=== PATIENT | female | born 1995 | race Caucasian/White ===

== ENCOUNTER 2021-01-06 13:12 | Emergency (ER) | payer OTHER, SELFPAY ==
[2021-01-06 13:24] VITALS: BP 127/73; PULSE 108; RESP 18; TEMP 36.7; O2SAT 100
--- NOTE | 2021-01-06 14:06 | ED.GENADULT ---
HPI - General Adult General Chief complaint: Wound/Laceration Stated complaint: abcess Time Seen by Provider: 01/06/21 13:14 Source: patient and RN notes reviewed Mode of arrival: ambulatory Limitations: no limitations History of Present Illness HPI narrative: Patient is a 25-year-old female who presents to emergency department for evaluation of wound to the groin adjacent to the labia patient has had this for several days was seen at an outside hospital had I&D no packing placed on Keflex presents today noting that the lesion has increased in size after work today patient denies any fever chills nausea vomiting patient notes she has had a similar lesion in the past does not currently have an [employer] patient denies concern for STDs or vaginal discharge or bleeding patient does note some mild urinary urgency and frequency would like to also be tested for urinary tract infection on arrival patient in no distress does not appear uncomfortable Related Data Home Medications Medication Instructions Recorded Confirmed valacyclovir [Valtrex] 500 mg PO Q12H 01/06/21 01/06/21 Allergies Allergy/AdvReac Type Severity Reaction Status Date / Time cashew nut Allergy Unknown Verified 01/06/21 13:31 Review of Systems Review of Systems: All systems reviewed & are unremarkable except as noted in HPI and below PMFSH Social History Social History Gender identity (if verbalized by the patient): Female Exam Narrative: Exam Narrative: GENERAL: Well-appearing, well-nourished, and in no acute distress. HEAD: Normocephalic, atraumatic. EYES: PERRLA and EOMI. EXTREMITIES: Normal range of motion. No edema. SKIN: Warm, dry, no rash. Patient with 1 cm x 2 cm tender swollen lesion with approximated central half centimeter incision that is approximated there is no erythema NEURO: No focal deficits. Alert and oriented x3. Cranial nerves II through XII grossly intact PSYCH: Normal mood and affect. Course Course Emergency Course: Patient presented with abscess to the right groin which was drained yesterday noting that it had increased in size again today wanted a second opinion on the lesion Vital Signs Vital signs: Vital Signs Temperature 98.1 F 01/06/21 13:24 Pulse Rate 108 H 01/06/21 13:24 Respiratory Rate 18 01/06/21 13:24 Blood Pressure 127/73 01/06/21 13:24 Pulse Oximetry 100 01/06/21 13:24 Temperature 98.1 F 01/06/21 13:24 Pulse Rate 108 H 01/06/21 13:24 Respiratory Rate 18 01/06/21 13:24 Blood Pressure 127/73 01/06/21 13:24 Pulse Oximetry 100 01/06/21 13:24 Procedures Abscess I/D skin: Date of Incision: 01/06/21 Time of Incision: 15:11 Side (if applicable): right Local Anesthetic: lidocaine 1% Technique: incised with #11 blade Packing used?: iodoform I&D Results: Pus and Blood Complications: pain Medical Decision Making MDM Narrative Medical decision making narrative: Abscess of the groin drained and packed will follow with gynecology given reasons to return Vital Signs Vital Signs: Vital Signs Temperature 98.1 F 01/06/21 13:24 Pulse Rate 108 H 01/06/21 13:24 Respiratory Rate 18 01/06/21 13:24 Blood Pressure 127/73 01/06/21 13:24 Pulse Oximetry 100 01/06/21 13:24 Temperature 98.1 F 01/06/21 13:24 Pulse Rate 108 H 01/06/21 13:24 Respiratory Rate 18 01/06/21 13:24 Blood Pressure 127/73 01/06/21 13:24 Pulse Oximetry 100 01/06/21 13:24 Lab Data Labs: Lab Results 01/06/21 Range/Units 14:20 Urine Color Yellow (Yellow) Urine Appearance Cloudy H (Clear) Urine pH 5.0 (5.0-9.0) Ur Specific [place] 1.024 (1.001-1.035) Urine Protein 1+ H (Negative) mg/dL Urine Glucose (UA) Negative (Negative) mg/dL Urine Ketones Negative (Negative) mg/dL Ur Blood (Man) Negative (Negative) Urine Nitrate Negative (Negative) Urine Gelacio
[2021-01-06 14:32] LABS: Add Urine Microscopic? YES; Appearance Urine Cloudy (Clear); Bacteria Urine Trace /hpf; Bilirubin Urine Negative (Negative); Blood Urine Negative (Negative); Color Urine Yellow (Yellow); Glucose Urine UA Negative (Negative); Ketones Urine Negative (Negative); Leukocyte Esterase Ur Negative LEU/UL (Negative); Mucus Urine Few /lpf; Nitrate Urine Negative (Negative); Protein Urine 1+ mg/dL (Negative); RBC Urine 0-2 /hpf (0-2); Specific Grav Ur 1.024 (1.001-1.035); Squamous Epithelial Cell Urine Many /hpf (Few); WBC Urine 0-3 /hpf
== END 2021-01-06 15:46 | disposition home or self-care (01) ==
PROVIDERS: Emergency Medicine Emergency Medical Services; Emergency Provider Emergency Medicine
DX: L02.214 Cutaneous abscess of groin (principal)
CPT/HCPCS: 10061; 81001; 81025; 87070; 87075; 87076; 87185; 87205; 99282

== ENCOUNTER 2021-03-01 14:39 | Emergency (ER) | payer OTHER, SELFPAY ==
[2021-03-01 15:09] VITALS: BP 103/59; PULSE 56; RESP 16; TEMP 36.8; O2SAT 100
--- NOTE | 2021-03-01 16:04 | ED.SKABFB ---
HPI - Skin/Abscess/Foreign Bdy General Chief complaint: Skin/Abscess/Foreign Body Stated complaint: Abcess Inner Thigh Time Seen by Provider: 03/01/21 15:30 Source: patient Mode of arrival: ambulatory Limitations: no limitations History of Present Illness HPI narrative: This is a 25-year-old female that presents to the emergency department for an area of redness and swelling to the right inner thigh. She has has noted pain in this area since yesterday. Does also report some dysuria. Denies fever, abdominal pain, vomiting, or drainage from the area. Related Data Home Medications Medication Instructions Recorded Confirmed acyclovir 03/01/21 Allergies Allergy/AdvReac Type Severity Reaction Status Date / Time cashew nut Allergy Unknown Verified 03/01/21 16:50 Review of Systems Review of Systems: Narrative: CONSTITUTIONAL: Denies fever GASTROINTESTINAL: Denies abdominal pain, nausea, vomiting GENITOURINARY: Reports dysuria All systems reviewed & are unremarkable except as noted in HPI and below PMFSH Past Medical History Medical History (Updated 03/01/21 @ 17:26 by Marianela Chan PA-C) History of herpes simplex infection Social History Social History (Updated 03/01/21 @ 16:05 by Marianela Chan PA-C) Substance use: never Gender identity (if verbalized by the patient): Female Exam Narrative: Exam Narrative: GENERAL: Well-appearing, well-nourished, and in no acute distress. HEAD: Normocephalic, atraumatic. EYES: EOMI. EXTREMITIES: Normal range of motion. No edema. SKIN: Warm, dry, no rash. NEURO: No focal deficits. Alert and oriented x3. PSYCH: Normal mood and affect FEMALE GENITAL: Right inner thigh with 2cm area of erythema and edema with central fluctuance. No other rashes or lesions noted Course Vital Signs Vital signs: Vital Signs Temperature 98.2 F 03/01/21 15:09 Pulse Rate 56 L 03/01/21 15:09 Respiratory Rate 16 03/01/21 15:09 Blood Pressure 103/59 L 03/01/21 15:09 Pulse Oximetry 100 03/01/21 15:09 Temperature 97.5 F L 03/01/21 16:43 Pulse Rate 55 L 03/01/21 16:43 Respiratory Rate 18 03/01/21 16:43 Blood Pressure 103/64 03/01/21 16:43 Pulse Oximetry 100 03/01/21 16:43 Procedures Abscess I/D lower extremity: Date of Incision: 03/01/21 Time of Incision: 17:23 Side (if applicable): right Local Anesthetic: lidocaine 1% and with epi Amount of anesthesia used (mL): 2 Technique: incised with #11 blade Packing used?: plain I&D Results: Pus and Blood MDM - Skin/Abscess/Foreign Bdy MDM Narrative Medical decision making narrative: Patient presents to the emergency department for an abscess to the right inner thigh present since yesterday. She is afebrile and nontoxic-appearing. Abscess was successfully drained. Patient was educated on wound care. She was also reporting some dysuria. Very small amount of urine removed. UA without evidence of infection. Bedside test is negative. Patient will be started on oral antibiotics after abscess drainage for mild surrounding cellulitis. She is to follow-up with her primary care doctor. She was given warnings to return to the ER Patient takes valacyclovir for suppressive therapy of genital herpes. Would like refill of this until she can see her primary doctor Lab Data Attestation: I reviewed the patient's lab results. Labs: Lab Results 03/01/21 Range/Units 16:25 Urine Color Yellow (Yellow) Urine Appearance Clear (Clear) Urine pH 5.0 (5.0-9.0) Ur Specific [place] 1.025 (1.001-1.035) Urine Protein 2+ H (Negative) mg/dL Urine Glucose (UA) Negative (Negative) mg/dL Urine Ketones Negative (Negative) mg/dL Ur Blood (Man) Negative (Negative) Urine Nitrate Negative (Negative) Urine Bilirubin Negative (Negative) Urine Urobilinogen 2.0 H (<2.0) mg/dL Leukocyte Esterase Rfl Negative (Negative) LON/UL Urin
[2021-03-01 16:43] VITALS: BP 103/64; PULSE 55; RESP 18; TEMP 36.4; O2SAT 100
[2021-03-01 16:46] LABS: Add Urine Microscopic? YES; Appearance Urine Clear (Clear); Bacteria Urine Trace /hpf; Bilirubin Urine Negative (Negative); Blood Urine Negative (Negative); Color Urine Yellow (Yellow); Glucose Urine UA Negative (Negative); Ketones Urine Negative (Negative); Leukocyte Esterase Ur Negative LEU/UL (Negative); Mucus Urine Few /lpf; Nitrate Urine Negative (Negative); Protein Urine 2+ mg/dL (Negative); RBC Urine 0-2 /hpf (0-2); Specific Grav Ur 1.025 (1.001-1.035); Squamous Epithelial Cell Urine Many /hpf (Few); WBC Urine 0-3 /hpf
[2021-03-01 18:28] VITALS: BP 105/58; PULSE 58; RESP 16; TEMP 36.7; O2SAT 100
== END 2021-03-01 18:28 | disposition home or self-care (01) ==
PROVIDERS: Physician Assistant; Emergency Provider Emergency Medicine
DX: L02.415 Cutaneous abscess of right lower limb (principal); A60.00 Herpesviral infection of urogenital system, unspecified
CPT/HCPCS: 10060; 81001; 81025; 99283

== ENCOUNTER 2021-04-24 22:00 | Emergency (ER) | payer OTHER, SELFPAY ==
[2021-04-24 22:14] VITALS: BP 117/75; PULSE 92; RESP 16; TEMP 36.7; O2SAT 100
[2021-04-24 23:30] VITALS: BP 126/96; PULSE 72; RESP 16; O2SAT 100
[2021-04-24 23:56] LABS: Add Urine Microscopic? YES; Appearance Urine Clear (Clear); Bacteria Urine Trace /hpf; Bilirubin Urine 1+ (Negative); Blood Urine Negative (Negative); Calcium Oxalate Crystals Urine Present /hpf; Color Urine Amber (Yellow); Glucose Urine UA Negative (Negative); Ketones Urine Trace mg/dL (Negative); Leukocyte Esterase Ur Negative LEU/UL (Negative); Mucus Urine Heavy /lpf; Nitrate Urine Negative (Negative); Protein Urine 2+ mg/dL (Negative); RBC Urine 0-2 /hpf (0-2); Squamous Epithelial Cell Urine Many /hpf (Few); WBC Urine 0-3 /hpf
[2021-04-24 23:59] LABS: Specific Grav Ur 1.031 (1.001-1.035)
--- NOTE | 2021-04-25 00:04 | ED.BACK ---
HPI - Back Pain/Injury General Chief Complaint: Back Pain/Injury Stated Complaint: back pain Time Seen by Provider: 04/24/21 23:25 Source: patient and RN notes reviewed Mode of arrival: ambulatory Limitations: no limitations History of Present Illness HPI Narrative: This is a 25 year old female who presents for evaluation of lower back pain. She states she woke up with low back pain this afternoon around 3 pm. She reports her pain became worse while she was at work tonight when she was reaching for something. Her pain is worse with movement and bending. She has not taken anything for her pain. She describes it as band around back and abdomen. She states her pain makes her bilateral thighs feel like they are numbness. She denies leg weakness, saddle anesthesia. She does reports some painful urination and vaginal discharge. She denies nausea, vomiting , fever or chills. She reports previous back pain. Related Data Home Medications Medication Instructions Recorded Confirmed acyclovir 03/01/21 Allergies Allergy/AdvReac Type Severity Reaction Status Date / Time cashew nut Allergy Unknown Verified 04/24/21 22:19 Review of Systems Review of Systems: All systems reviewed & are unremarkable except as noted in HPI and below PMFSH Past Medical History Medical History History of herpes simplex infection Social History Social History (Updated 03/01/21 @ 16:05 by Marianela Chan PA-C) Substance use: never Gender identity (if verbalized by the patient): Female Exam Const: General: alert Nutritional Appearance: thin Orientation/consciousness: patient oriented x3 Eyes: EOM: EOMs intact bilaterally Resp: Effort & Inspection: normal respiratory effort and no retractions Auscultation: clear to auscultation bilaterally Cardio: Rate: regular rate Rhythm: regular rhythm Heart sounds: no murmurs GI: GI Palp: Yes Soft to palpation, No Tenderness to palpation present (GI) and No Guarding due to palpation present (GI) Auscultation: normal bowel sounds : General: Yes no CVA tenderness Back/Spine/Pelvis: Back: no CVA tenderness Skin: General skin exam: normal color Rashes: no rashes Neuro: General: patient oriented x3, moves all extremities, no focal motor deficits and CN's II-XI intact bilaterally Speech: normal speech Gait exam (Neuro): Normal gait present Extrem: General: normal to inspection Psych: Mental Status: mental status grossly normal Affect: normal affect Course Reevaluation(s) Reevaluation #1: Patient states she feels better. This appears to be muscular. She has not abdominal tenderness and pelvic exam is unremarkable. Date: 04/25/21 Time: 01:30 Vital Signs Vital signs: Vital Signs Temperature 98.1 F 04/24/21 22:14 Pulse Rate 92 04/24/21 22:14 Respiratory Rate 16 04/24/21 22:14 Blood Pressure 117/75 04/24/21 22:14 Pulse Oximetry 100 04/24/21 22:14 Temperature 98.1 F 04/24/21 22:14 Pulse Rate 80 04/25/21 01:20 Respiratory Rate 18 04/25/21 01:20 Blood Pressure 113/77 04/25/21 01:20 Pulse Oximetry 100 04/25/21 01:20 MDM - Back Pain/Injury Lab Data Attestation: I reviewed the patient's lab results. Labs: Lab Results 04/24/21 04/25/21 04/25/21 Range/Units 23:44 01:05 01:05 Urine Color Lisa (Yellow) Urine Appearance Clear (Clear) Urine pH 5.0 (5.0-9.0) Ur Specific [place] 1.031 (1.001-1.035) Urine Protein 2+ H (Negative) mg/dL Urine Glucose (UA) Negative (Negative) mg/dL Urine Ketones Trace (Negative) mg/dL Ur Blood (Man) Negative (Negative) Urine Nitrate Negative (Negative) Urine Bilirubin 1+ H (Negative) Urine Urobilinogen 4.0 H (<2.0) mg/dL Leukocyte Esterase Rfl Negative (Negative) LON/UL Urine RBC 0-2 (0-2) /hpf Urine WBC 0-3 /hpf Ur Squamous Epith Cells Many H (Few) /hpf Calcium Ox
[2021-04-25] MEDS: CYCLOBENZAPRINE HCL 5 MG TABLET PO (00:16)
[2021-04-25] MEDS: IBUPROFEN 600 MG TABLET PO (00:16)
[2021-04-25 01:20] VITALS: BP 113/77; PULSE 80; RESP 18; O2SAT 100
== END 2021-04-25 01:50 | disposition home or self-care (01) ==
PROVIDERS: Emergency Provider General Practice
DX: M54.5 Low back pain (principal)
CPT/HCPCS: 81001; 81025; 87070; 87491; 87591; 87808; 99284; A9270

== ENCOUNTER 2022-03-04 15:05 | Outpatient (CLI) | payer OTHER, SELFPAY ==
--- NOTE | ~2022-03-04 | US_ITS ---
US OB /maternal detail DATE: 03/04/2022 16:58 INDICATION: anatomy screen TECHNIQUE: Real-time imaging and Doppler analysis COMPARISON: None FINDINGS: Live matthews intrauterine gestation, fetus in breech presentation, longitudinal lie. Posterior placenta, lower margin 5.6 cm above the internal os. Subjectively normal amount of amniotic fluid. No evidence of cerebral ventriculomegaly. Normal cerebellum, cisterna magna and nuchal fo ld. Due to position, the technologist notes that the spine and heart not a optimally demo nstrated. heart rate 155 bpm. diaphragm is intact. Fluid is demonstrated in the stomach and urinary bladder. No f etal hydronephrosis. Three-vessel umbilical cord with normal insertion. The extremities are demonstra sedrick. Biparietal diameter 4.61 cm; 20 weeks 0 days Head circumference 16.49 cm; 19 weeks 1 day Abdominal circumference 15.70 cm; 20 weeks 6 days Femur length 3.31 cm; 20 weeks 2 days Composite age by Hadlock formula is 20 weeks 1 day +/- 1 week 3 days with LUCRECIA of 07/21/2022 compared to 07/20/2022 by LMP. Estimated weight is 355 cm 53 g. Estimated weight-GP: 55% Head circumference/abdominal circumference 1.05, slightly below normal range 1.07-125. IMPRESSION: Breech presentation Suboptimal visualization of the spine and heart; short-term follow-up imaging is recommended. Estimated gestational age is 20 weeks 1 day +/- 1 week 3 days with LUCRECIA of 07/21/2022 Reviewed, dictated and finalized at [facility]. Reviewed, dictated and finalized at [facility]. IMPRESSION: Breech presentation Suboptimal visualization of the spine and heart; short-term follow-up gerard ging is recommended. Estimated gestational age is 20 weeks 1 day +/- 1 week 3 days with LUCRECIA of 07/21
== END 2022-03-04 15:06 | disposition home or self-care (01) ==
PROVIDERS: PCP Emergency Medicine; Visit Provider Advanced Practice Midwife
DX: Z34.92 Encounter for supervision of normal pregnancy, unspecified, second trimester (principal); Z3A.20 20 weeks gestation of pregnancy
CPT/HCPCS: 76805

== ENCOUNTER 2022-03-26 13:59 | Outpatient (CLI) | payer OTHER, SELFPAY ==
--- NOTE | ~2022-03-26 | US_ITS ---
US OB limited 03/26/2022 15:02 Indication: Incomplete survey on prior examination Procedure: High-resolution Limited obstetrical ultrasound using transabdominal technique Comparison: Ultrasound dated 03/04/2022 Findings: There is a single living intrauterine in vertex presentation. Placenta is posteri or without previa. Amniotic fluid is subjectively normal. Limited survey demonstrates normal spine an d four-chamber heart. The remainder of the survey was completed on prior examination. Impression: 1: Single living intrauterine in vertex presentation. 2: Normal limited survey of the spine and four-chamber heart. Reviewed, dictated and finalized at location [facility]. Impression: 1: Single living intrauterine in vertex presentation. 2: Normal limited survey of the spine and four-chamber heart.
== END 2022-03-26 14:00 | disposition home or self-care (01) ==
PROVIDERS: PCP Emergency Medicine; Visit Provider Obstetrics & Gynecology Gynecology
DX: Z36.2 Encounter for other antenatal screening follow-up (principal)
CPT/HCPCS: 76815

== ENCOUNTER 2022-05-12 16:51 | Outpatient (CLI) | payer OTHER, SELFPAY ==
--- NOTE | ~2022-05-12 | US_ITS ---
EXAMINATION: US OB follow up DATE: 05/12/2022 17:28 INDICATION: Size less than dates. TECHNIQUE: Real-time ultrasound of the pelvis was performed. COMPARISON: Ultrasound 03/26/2022, 03/04/2022 FINDINGS: There is a single living fetus in vertex presentation. The placenta is posterior and fundal. h eart rate is 138 beats per minute (bpm). The amniotic fluid index is 14.2 cm, which is normal. The following biometric data were obtained: Biparietal diameter (BPD): 7.5 cm; head circumference (HC): 27.7 cm; abdominal circumference (AC): 25 .4 cm; femur length (FL): 5.7 cm. These measurements are concordant. Estimated weight is 1442 g +/- 216 g, which correlates with the 42nd percentile when 07/24/2022 is used as estimated date of delivery. As single measurements, these parameters are each equal to the following estimated gestational ages: BPD: 29 weeks 6 days. HC: 30 weeks 2 days. AC: 29 weeks 4 days. FL: 29 weeks 5 days. estimated gestational age based solely on measurements from this exam is 29 weeks 6 days +/- 2 weeks 1 days. IMPRESSION: 1. Single living fetus in vertex presentation. 2. Estimated weight is 1442 g +/- 216 g, which correlates with the 42nd percentile when 2021 is used as estimated date of delivery. Reviewed, dictated and finalized at location [facility]. IMPRESSION: 1. Single living fetus in vertex presentation. 2. Estimated weight is 1442 g +/- 216 g, which correlates with the 42nd percentile when 07/24/2022 is used as estimated date of delivery.
== END 2022-05-12 16:52 | disposition home or self-care (01) ==
LOC: ANHIMG 16:56
PROVIDERS: PCP Emergency Medicine; Visit Provider Advanced Practice Midwife
DX: O26.843 Uterine size-date discrepancy, third trimester (principal); Z3A.29 29 weeks gestation of pregnancy
CPT/HCPCS: 76816

== ENCOUNTER 2022-06-08 14:26 | Observation (INO) | payer OTHER, SELFPAY ==
[2022-06-08 14:40] VITALS: BMI 25.5
[2022-06-08 14:46] VITALS: BP 110/62; PULSE 89
--- NOTE | 2022-06-08 14:46 | OBADM ---
This patient, Teresa Toribio, admitted to the OB room OB Post 115 for observation. Patient/family oriented to hospital policies and general routines including ID bracelet, bed and alarms, visiting hours, pain management, procedures, bathroom and other care routines, personal items, smoking policy, room service/diet, and visiting hours. Patient/Family are encouraged to report perceived risks to care and to ask questions if they do not understand what they are told or what they should do.
[2022-06-08 15:01] VITALS: BP 104/63; PULSE 90
[2022-06-08 15:04] LABS: Appearance Urine Slightly Cloudy (Clear); Bilirubin Urine Negative (Negative); Blood Urine Trace-intact (Negative); Color Urine Yellow (Yellow); Glucose Urine UA Negative (Negative); Ketones Urine Negative (Negative); Leukocyte Esterase Ur 3+ LEU/UL (Negative); Nitrate Urine Negative (Negative); Protein Urine Negative (Negative)
[2022-06-08 15:16] VITALS: BP 106/72; PULSE 86
[2022-06-08] MEDS: ONDANSETRON HCL ODT 4 MG TABLET PO (15:23)
[2022-06-08 15:29] LABS: Amorphous Sediment Urine Few; Bacteria Urine Trace /hpf; Mucus Urine Rare /lpf; Squamous Epithelial Cell Urine Many /hpf (Few)
[2022-06-08 15:31] VITALS: BP 103/62; PULSE 102
[2022-06-08 15:31] LABS: Add Urine Microscopic? YES
[2022-06-08 15:46] VITALS: BP 106/58; PULSE 81
--- NOTE | 2022-06-08 16:20 | PC.NURSE ---
[address] Sierra, reviewed UA results, orders to give 4 mg PO Zofran once. If symptoms resolved pt may be discharged to home w/ zofran prescription.
--- NOTE | 2022-06-13 04:44 | P.PNOB_ITS ---
OB - Triage/Final Diagnosis Visit Information Date of evaluation: 06/08/22 Reason for evaluation: other (nausea/vomiting with swelling) Comments/Additional reasons for admission: I have assessed the risk for this patient, Teresa Toribio, and determined that she would benefit from observation care. Evaluation Laboratory results: Laboratory Tests 06/08/22 14:53 Urine Color Yellow Urine Appearance Slightly cloudy Urine pH 7.0 Ur Specific [place] 1.020 Urine Protein Negative Urine Glucose (UA) Negative Urine Ketones Negative Ur Blood (Man) Trace-intact Urine Nitrate Negative Urine Bilirubin Negative Urine Urobilinogen 1.0 Leukocyte Esterase Rfl 3+ H Urine RBC 6-10 H Urine WBC 7-9 H Ur Squamous Epith Cells Many H Amorphous Sediment Few H Urine Bacteria Trace Urine Mucus Rare
== END 2022-06-08 16:20 | disposition home or self-care (01) ==
PROVIDERS: Admitting Provider Obstetrics & Gynecology Gynecology; PCP Emergency Medicine; Visit Provider Obstetrics & Gynecology Gynecology
DX: O99.891 Other specified diseases and conditions complicating pregnancy (principal); M54.9 Dorsalgia, unspecified; O21.2 Late vomiting of pregnancy; Z3A.33 33 weeks gestation of pregnancy
CPT/HCPCS: 81001; 87086; 87088; A9270; G0378; G0379

== ENCOUNTER 2022-06-09 16:26 | Outpatient (CLI) | payer OTHER, SELFPAY ==
--- NOTE | ~2022-06-09 | US_ITS ---
EXAMINATION: US OB follow up DATE: 06/09/2022 17:21 INDICATION: Size greater than dates. TECHNIQUE: Real-time transabdominal obstetric ultrasound. FINDINGS: Comparison to multiple prior studies sequentially, with oldest reviewed study dated 022. There is a single living fetus in vertex presentation. The placenta is posterior/fundal without plac enta previa. cardiac activity and movement is noted with a heart rate of 138 beats per minute. T he amniotic fluid volume is normal. KAYLYNN measures 13.5 cm. The following biometric data were obtained: BPD: 83mm corresponds to gestational age 33 weeks 3 days. Head circumference: 295mm corresponds to gestational age 32 weeks 4 days. Abdominal circumference: 285mm corresponds to gestational age 32 weeks 4 days. Femur length: 66mm corresponds to gestational age 34 weeks 0 days. Estimated weight: 2108grams +/- 316grams, 27.1% by Hadlock method.] IMPRESSION: 1. Single living intrauterine in vertex presentation with an estimated gestational age of 33 weeks 0 days by inititial ultrasound. Appropriate interval growth. 2. Normal placenta. Reviewed, dictated and finalized at location [facility]. IMPRESSION: 1. Single living intrauterine in vertex presentation with an estimat ed gestational age of 33 weeks 0 days by inititial ultrasound. Appropriate int erval growth. 2. Normal placenta.
== END 2022-06-09 16:27 | disposition home or self-care (01) ==
LOC: ANHIMG 16:29
PROVIDERS: PCP Emergency Medicine; Visit Provider Advanced Practice Midwife
DX: O36.5930 Maternal care for other known or suspected poor fetal growth, third trimester, not applicable or unspecified (principal); Z3A.33 33 weeks gestation of pregnancy
CPT/HCPCS: 76816

== ENCOUNTER 2022-06-27 16:39 | Observation (INO) | payer OTHER, SELFPAY ==
[2022-06-27 17:05] VITALS: BP 118/72; PULSE 110
[2022-06-27 17:12] VITALS: BMI 26.2
--- NOTE | 2022-06-27 18:07 | PC.NURSE ---
Spoke to Dr Baker regarding tracing and symptoms. Okay to discharge.
[2022-06-27 18:08] VITALS: BP 118/72; PULSE 86
--- NOTE | 2022-07-06 10:58 | PM.OBTRLD ---
OB - Triage/Final Diagnosis Visit Information Reason for evaluation: other ( abdominal pain) Comments/Additional reasons for admission: I have assessed the risk for this patient, Teresa Toribio, and determined that she would benefit from observation care.
== END 2022-06-27 18:16 | disposition home or self-care (01) ==
PROVIDERS: Admitting Provider Student in an Organized Health Care Education/Training Program; PCP Emergency Medicine; Referring Provider Advanced Practice Midwife; Visit Provider Student in an Organized Health Care Education/Training Program
DX: O26.893 Other specified pregnancy related conditions, third trimester (principal); R10.9 Unspecified abdominal pain; Z3A.36 36 weeks gestation of pregnancy
CPT/HCPCS: 59025; G0378; G0379

== ENCOUNTER 2022-07-15 12:56 | Outpatient (CLI) | payer OTHER, SELFPAY ==
--- NOTE | ~2022-07-15 | US_ITS ---
EXAMINATION: US OB follow up DATE: 07/15/2022 14:40 INDICATION: Size less than dates during third trimester TECHNIQUE: Real-time ultrasound of the pelvis was performed. The interpreting radiologist was not pre sent for the study. COMPARISON: 06/09/2022 FINDINGS: There is a single living fetus in vertex presentation. The placenta is fundal. cardia c activity and movement are noted. heart rate is 157 beats per minute (bpm). The amniotic fluid index is 18.3 cm which is normal (normal range: 7.3 cm to 23.9 cm). The following biometric data were obtained: Biparietal diameter (BPD): 8.8 cm; head circumference (HC): 32.2 cm; abdominal circumference (AC): 32 .8 cm; femur length (FL): 7.4 cm. These measurements are concordant. Estimated weight is 3032 g +/- 454 g, which correlates with the 21st percentile when 07/24/2022 is used as estimated date of delivery. As single measurements, these parameters are each equal to the following estimated gestational ages w ith ranges of +/- 2 standard deviations: BPD: 35 weeks 4 days +/- 3 weeks 1 days. HC: 36 weeks 3 days +/- 2 weeks 5 days. AC: 26 weeks 5 days +/- 3 weeks 0 days. FL: 37 weeks 4 days +/- 3 weeks 1 days. estimated gestational age based solely on measurements from this exam is 36 weeks 4 days +/- 2 weeks 4 days. IMPRESSION: 1. Single living fetus in vertex presentation. 2. Normal amniotic fluid index. 3. Estimated weight is 3032 g +/- 454 g, which correlates with the 21st percentile when 022 is used as estimated date of delivery. Reviewed, dictated and finalized at location [facility]. [employer] IMPRESSION: 1. Single living fetus in vertex presentation. 2. Normal amniotic fluid index. 3. Estimated weight is 3032 g +/- 454 g, which correlates with the 21st p ercentile when 07/24/2022 is used as estimated date of delivery.
== END 2022-07-15 12:57 | disposition home or self-care (01) ==
PROVIDERS: PCP Emergency Medicine; Visit Provider Obstetrics & Gynecology Gynecology
DX: O36.5930 Maternal care for other known or suspected poor fetal growth, third trimester, not applicable or unspecified (principal); Z3A.36 36 weeks gestation of pregnancy
CPT/HCPCS: 76816

== ENCOUNTER 2022-07-21 11:08 | Inpatient (IN) | payer OTHER, SELFPAY ==
[2022-07-21] VITALS (132 sets, daily range): BP systolic 50–129; BP diastolic 38–84; PULSE 63–167; RESP 16; TEMP 36.6–36.7; O2SAT 96–100; BMI 27.6
--- NOTE | ~2022-07-21 | US_ITS ---
EXAMINATION: US OB limited w BPP DATE: 07/21/2022 13:13 INDICATION: Variable decelerations. Third trimester. TECHNIQUE: Real-time pelvic ultrasound was performed. COMPARISON: Ultrasound 07/15/2022 FINDINGS: There is a single living fetus in vertex presentation. The placenta is fundal. heart rate is 1 35 beats per minute (bpm). The amniotic fluid index is 14.0 cm, which is normal. Biophysical profile performed by the technologist: breathing (30 sec sustained breathing in 30 minutes): 2 out of 2 movement (3 gross body movements in 30 minutes): 2 out of 2 tone (one episode of dubqsos-jkxecnnek-qgkdtqu limb movement): 2 out of 2 Amniotic fluid pocket (2 cm): 2 out of 2 Total score: 8 out of 8 IMPRESSION: 1. Single living fetus in vertex presentation. 2. Biophysical profile 8 out of 8. Reviewed, dictated and finalized at location A. ER ROOM HELPER
--- NOTE | 2022-07-21 11:08 | LDADM ---
This patient, Teresa Toribio, was admitted to Labor/Delivery/Recovery 102 on 07/21/22 at 11:08. Plans for labor, pain management and were discussed with patient. Patient/family oriented to hospital policies and general routines including ID bracelet, bed and alarms, visiting hours, pain management, procedures, bathroom and other care routines, personal items, smoking policy, room service/diet and guest tray routines, security routines, and visiting hours. Patient/Family are encouraged to report perceived risks to care and to ask questions if they do not understand what they are told or what they should do. See OBIX for further documentation.
--- NOTE | 2022-07-21 15:07 | PM.OBPNLAB ---
Pain Control Date/time seen: 07/21/22 15:07 Comments: Breathing through contractions. Reports increasingly more painful ctx. Pelvic Exam Dilation (cm): 1 (1.5cm) Effacement (%): 80 station: -2 Amniotic membrane status: Intact Comments: vtx Contractions Monitor mode: External Contraction frequency: 3 Contraction duration: 60 Contraction pattern: Regular Contraction phase: Contraction Contraction intensity: Moderate Status status: Category ll Assessment and Plan Comments: Discussed plan of care with Teresa and her support person who is her stepmother. She reports increasingly painful contractions. Due to this and heart tone deceleration will admit to Labor and delivery and plan for delivery. Anticipate vaginal . Patient desires epidural for pain control. After epidural placement will consider amniotomy. Discussed plan of care with patient and questions answered.
--- NOTE | 2022-07-21 15:09 | WPDOBADMIT ---
Obstetrics - Admit Note Admission Note: record reviewed. No pertinent additions to the history and/or any subsequent changes in the physical findings that are not consistent with the expected course of the were found. Additions to the history and/or subsequent changes in the physical findings follow. intermittent FHT decelerations.
[2022-07-21 15:55] LABS: Basophils Absolute Auto 0.1 K/mm3 (0.0-0.1); Basophils Percent Auto 0.2 % (0.2-1.2); Eosinophils Percent Auto 0.2 % (0-4.4); Hematocrit 36.5 % (37.0-47.0); Hemoglobin 12.7 g/dL (12.0-15.0); Immature Granulocyte Absolute 0.18 K/mm3 (0.00-0.031); Immature Granulocyte Percent A 0.7 % (0-0.5); Lymphocytes Absolute Auto 3.35 K/mm3 (0.9-3.2); Lymphocytes Percent Auto 13.9 % (18.3-44.2); Mean Corpuscular HGB Conc 34.8 g/dl (32-36); Mean Corpuscular Hemoglobin 32.7 pg (26-34); Mean Corpuscular Volume 94.1 fl (80-100); Mean Platelet Volume 9.5 fl (7.4-10.4); Monocytes Absolute Auto 1.3 K/mm3 (0.1-0.6); Monocytes Percent Auto 5.3 % (2.6-8.5); Neutrophils Absolute Auto 19.2 K/mm3 (1.3-6.7); Neutrophils Percent Auto 79.7 % (45.5-73.1); Platelet Count Result 285 k/mm3 (150-375); Red Blood Count 3.88 M/mm3 (4.2-5.4); Red Cell Distribution Width 13.2 % (11.5-14.5); White Blood Count 24.1 K/mm3 (4.5-10.0)
[2022-07-21] MEDS: LACTATED RINGERS 1,000 ML 125 ML IV CONT ×3 (15:55→20:47)
--- NOTE | 2022-07-21 16:34 | WPDANESEPP ---
Anes - Eval Pre Procedure Procedure: Labor epidural Date/Time: 07/21/22 16:34 Preop Diagnosis: Abdominal pain with contractions Pre Op Diagnosis: Contractions Patient Data Age: 27 Gender: F Height: 1.7 m Weight: 80 kg Allergies Allergy/AdvReac Type Severity Reaction Status Date / Time cashew nut Allergy Unknown Verified 03/11/22 14:25 Home Medications Medication Instructions Recorded Confirmed Type vitamins no.119-iron See Rx Instructions .Route .COMPLEX 03/11/22 06/27/22 History fumarate 29 mg-folic acid 1 mg tablet (Se-George-19) valacyclovir 500 mg tablet 1,000 mg PO DAILY 03/11/22 06/27/22 History (Valtrex) cholecalciferol (vitamin D3) 50 50 mcg PO WEEKLY 07/03/22 07/03/22 History mcg (2,000 unit) tablet (Vitamin D3) Laboratory Tests 07/21/22 07/21/22 07/21/22 15:46 15:46 15:46 WBC 24.1 K/mm3 H K/mm3 (4.5-10.0) RBC 3.88 M/mm3 L M/mm3 (4.2-5.4) Hgb 12.7 g/dL g/dL (12.0-15.0) Hct 36.5 % L % (37.0-47.0) MCV 94.1 fl fl (80-100) MCH 32.7 pg pg (26-34) MCHC 34.8 g/dl g/dl (32-36) RDW 13.2 % % (11.5-14.5) Plt Count 285 k/mm3 k/mm3 (150-375) MPV 9.5 fl fl (7.4-10.4) Immature Gran % (Auto) 0.7 % H % (0-0.5) Neut % (Auto) 79.7 % H % (45.5-73.1) Lymph % (Auto) 13.9 % L % (18.3-44.2) [place] % (Auto) 5.3 % % (2.6-8.5) Eos % (Auto) 0.2 % % (0-4.4) Baso % (Auto) 0.2 % % (0.2-1.2) Lymph # (Auto) 3.35 K/mm3 H K/mm3 (0.9-3.2) [place] # (Auto) 1.3 K/mm3 H K/mm3 (0.1-0.6) Eos # (Auto) 0.0 K/mm3 K/mm3 (0-0.3) Baso # (Auto) 0.1 K/mm3 K/mm3 (0.0-0.1) Abs Immat Gran (auto) 0.18 K/mm3 H K/mm3 (0.00-0.031) Absolute Neuts (auto) 19.2 K/mm3 H K/mm3 (1.3-6.7) Absolute Nucleated RBC 0.0 K/mm3 K/mm3 (0.0-0.012) Nucleated RBC % 0.0 % % (0.0-0.2) RPR Pending HIV 1&2 Ab/P24 Ag 4thGn Pending Blood Type Antibody Screen 07/21/22 15:46 WBC RBC Hgb Hct MCV MCH MCHC RDW Plt Count MPV Immature Gran % (Auto) Neut % (Auto) Lymph % (Auto) [place] % (Auto) Eos % (Auto) Baso % (Auto) Lymph # (Auto) [place] # (Auto) Eos # (Auto) Baso # (Auto) Abs Immat Gran (auto) Absolute Neuts (auto) Absolute Nucleated RBC Nucleated RBC % RPR HIV 1&2 Ab/P24 Ag 4thGn Blood Type A Positive Antibody Screen Negative : gestational age HCG: positive Patient hx anesthesia problems: none Family hx anesthesia problems: none Results Review: All pre-operative results and documents have been reviewed as part of the pre-operative evaluation. [facility] Past Medical History Medical History Anxiety and depression History of herpes simplex infection Overweight (BMI 25.0-29.9) and not yet delivered Vaginal infection Family History Family History Father Hypertension Mother No problems noted. 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 Gender identity (if verbalized by the patient): Female Spiritua
[2022-07-21 16:43] LABS: HIV 1/2 Ab P24 Ag Result Negative (Negative)
[2022-07-21] MEDS: ONDANSETRON INJ 4 MG/2 ML VIAL IV PUSH (17:06)
--- NOTE | 2022-07-21 17:15 | P.PNOB_ITS ---
Pain Control Date/time seen: 07/21/22 17:15 Pain control: tolerating well and epidural Comments: Denies pain. Pelvic Exam Dilation (cm): 3 (1.5cm) Effacement (%): 80 station: -2 Amniotic membrane status: Intact Contractions Monitor mode: External Contraction frequency: 3 Contraction pattern: Regular Contraction phase: Contraction Contraction intensity: Moderate Status status: Category l Assessment and Plan Comments: Teresa is resting comfortably in bed. She denies pain. Her mother and step mom are at the bedside and supportive. Discussed plan of care at this time. Discussed possibility of amniotomy including risks and benefits. Teresa is agre eable. Amniotomy performed with return of moderate amount of light blood tinged pink fluid. heart rate tracing remains reassuring. Plan the cervical exam in 2 hours. Anticipate vaginal
--- NOTE | 2022-07-21 20:20 | PM.OBPNLAB ---
Pain Control Date/time seen: 07/21/22 20:10 Pain control: tolerating well and epidural Pelvic Exam Dilation (cm): 3 (1.5cm) Effacement (%): 80 station: 0 Amniotic membrane status: Ruptured Contractions Monitor mode: External Contraction frequency: 3 Contraction pattern: Regular Contraction phase: Contraction Contraction intensity: Moderate Status status: Category ll Assessment and Plan Assessment: induction ongoing Plan: begin patient augmentation Comments: IUPC placed easily. pink tinged amniotic fluid returned. Plan to start oxytocin augmentation as needed to achieve adequate contraction pattern. Anticipate vaginal . Family remains present at bedside.
[2022-07-21] MEDS: SODIUM CHLORIDE 0.9% IV 300 ML 600 ML I-UTERINE (22:00)
[2022-07-21] MEDS: SODIUM CHLORIDE 0.9% IV 1,000 ML 150 ML I-UTERINE (22:41)
[2022-07-22] VITALS (101 sets, daily range): BP systolic 76–116; BP diastolic 33–70; PULSE 61–135; RESP 16–20; TEMP 36.2–37.1; O2SAT 94–100
--- NOTE | 2022-07-22 01:43 | WPDHPUPDATE1 ---
History and Physical Update Update Date/Time: 07/22/22 01:43 History and Physical has been reviewed, including an updated exam of the patient. There are NO changes in the patient's condition. Risks, benefits, and alternatives have been discussed and questions answered. Patient agrees to proceed with procedure.
--- NOTE | 2022-07-22 01:44 | PM.IMHP ---
H&P: HPI History of Present Illness Date/Time: 07/22/22 01:44 Chief Complaint: Recurrent variable and late decelerations Narrative: the patient is a 27-year-old 1 para 0 admitted with variable decelerations at 39 5/7 weeks for medical induction of labor. Patient progressed initially well and the heart tones remained in category 1 with occasional variables. More recently the infant has had deep variables and some late decelerations that resolve but returned immediately after about 4 to 5 contractions. Position change and amnioinfusion are not successful. Was recommended to proceed with primary section. Patient voices understanding and agrees to proceed. As previously discussed in the office on several occasions the patient is Christian and she declines all blood products. The risks of hemorrhage complications including are reviewed in the office and again this morning and the patient still states she declines all blood products. Plan is to proceed with primary . labs A-positive, rubella immune, RPR negative, hepatitis-B surface antigen negative, HIV negative, group B strep positive. Review of Systems Review of Systems: No specific complaints PMFSH Past Medical History Medical History (Updated 07/22/22 @ 01:50 by Jeniffer Sierra MD) Anxiety and depression OCD and PTSD History of drug use last used meth in 2020 drug screen in this has been positive only for marijuana and nicotine History of herpes simplex infection Overweight (BMI 25.0-29.9) Family History Family History Father Hypertension Mother No problems noted. Grandparent Kidney malignancy Social History Social History Social History: Patient drinks a few sodas daily Smoking packs per day: 1 Smoking cigarettes per day: 20.0 Years smoked: 11 Smoking pack-years: 11.00 Smoking status: Current every day smoker Tobacco type: cigarettes Second hand tobacco smoke exposure: Yes Alcohol intake: never Substance use: never Substance use type: does not use Lack of Transportation: No Lack of Food: Never True Current Housing: I Have Housing Concerned About Future Housing: No Difficulty Paying Gas/Electric Bills: No Difficulty Paying for Meds: No Currently Unemployed: No Education: High School Diploma/GED Difficulty w/ Childcare or Family Care: No Additional occupation/education comments: 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 Gender identity (if verbalized by the patient): Female Spiritual care concerns: No Meds Home Medications and Allergies Home Medications Medication Instructions Recorded Confirmed Type vitamins no.119-iron See Rx Instructions .Route .COMPLEX 03/11/22 07/21/22 History fumarate 29 mg-folic acid 1 mg tablet (Se--19) valacyclovir 500 mg tablet 1,000 mg PO DAILY 03/11/22 07/21/22 History (Valtrex) Allergies Allergy/AdvReac Type Severity Reaction Status Date / Time cashew nut Allergy Unknown Verified 03/11/22 14:25 Vital Signs Vital Signs - 24 hr 07/21/22 16:37 07/21/22 16:38 07/21/22 16:42 Pulse Rate 73 Blood Pressure 114/58 L Pulse Oximetry 100 100 07/21/22 16:45 07/21/22 16:46 07/21/22 16:47 Pulse Rate 80 75 Blood Pressure 123/73 129/65 Pulse Oximetry 100 07/21/22 16:48 07/21/22 16:50 07/21/22 16:52 Pulse Rate 71 68 81 Blood Pressure 108/66 110/62 110/65 Pulse Oximetry 100 07/21/22 16:54 07/21/22 16:57 07/21/22 17:00 Pulse Rate 88 77 85 Blood Pressure 108/67 109/62 115/55 L Pulse Oximetry 100 07/21/22 17:02 07/21/22 17:03 07/21/22 17:06 Pulse Rate 82 67 Blood Pressure 112/59 L 106/56 L Pulse Oximetry 100 07/21/22 17:07 07/21/22 17:09 07/21/22 17:12 Pulse Rate 71 81 Blood Pressure 104/84 112/60 Pulse Oximetry 100
--- NOTE | 2022-07-22 02:35 | P.OP_ITS ---
Procedure Note - Detailed Date of Procedure 07/22/22 Pre-op Diagnosis Intrauterine at 39 and 5/7 intolerance of labor Post-op Diagnosis Same Procedure Performed urgent low-transverse section Surgeon Jeniffer Sierra MD Anesthesia Spinal Findings female 6lb with 8 and 9 Apgars; cord is around the shoulder and body; normal-appearing tubes, ovaries, and uterus Description of Procedure The patient is taken to the operating room and placed under anesthesia in the dorsal supine position with a leftward tilt. The patient was prepped and draped in the usual sterile fashion. Once anesthesia was deemed adequate a Pfannenstiel skin incision is made with a scalpel and carried down to the underlying layer of fascia. The incision was extended laterally using Henao scissors. Ochsner was used to tent the fascia which was then dissected off using sharp dissection. The rectus muscles were in the midline and entered with Metzenbaum while tenting with a Peon. The incision was extended with blunt traction. The bladder blade is placed and the vesicouterine peritoneum tented. The bladder flap is created using Metzenbaum then blunt traction. A bladder blade is replaced. The lower uterine segment was incised in a transverse fashion with the scalpel. The incision was extended with blunt traction. The 's head was brought up into the incision while the family assistant applied fundal pressure was delivered. The infant was fully delivered and the cord is detangled. The placenta is removed manually due to cord avulsion. Extensive membranes are in the uterus and are cleared with a dry lap sponge. The uterus is exteriorized and cleared of all clots and debris. The uterine incision was closed using 0 Monocryl in a running locked fashion. Same suture was used to imbricate. One additional scemkw-ci-cmoam suture was required in the right angle. The cul-de-sac is irrigated and extensive clots are removed. The gutters also had clots that are removed. The uterine incision was again inspected and noted to be hemostatic. The fascia was closed using 0 Vicryl in a running fashion. Subcutaneous tissues were irrigated and made hemostatic using Bovie cautery. The skin is closed using 4-0 Vicryl in a subcuticular fashion. Dermaflex was placed over the incision. Sponge, needle, and instrument counts are correct per the OR staff. Patient received Ancef prior to incision. Patient was taken to recovery in stable condition. Estimated Blood Loss 1,095 Drains Yes ( Perez catheter) Packing No Pathology Yes ( placenta) Complications No immediate complications Condition Stable Disposition PACU
--- NOTE | 2022-07-22 02:40 | PM.OBDSVD ---
DS: Admitting Diagnosis Discharge Date 07/24/22 Admitting Diagnosis intrauterine at 39 and 5/7 decelerations DS: Discharge Diagnosis Discharge Diagnosis (1) intolerance to labor, delivered, current hospitalization: Code(s): O77.9 - Labor and delivery complicated by stress, unspecified Status: Acute (2) 39 weeks gestation of : Code(s): Z3A.39 - 39 weeks gestation of Status: Acute (3) delivery delivered: Code(s): O82 - Encounter for delivery without indication Status: Acute OB - DS: Summary OB Procedures : NST and Ultrasound OB Procedures Intrapartum: low cervical, transverse OB Procedures: : None Peripartum Data Infant Delivery Method: Section Procedures: Procedures Operation Date: 07/22/22 02:00 <No data on this case meets the specified criteria> complications: none Status at Discharge Functional status at discharge: independent ambulation Overall status at discharge: patient is progressing back to baseline Time Spent with Patient Time attestation: Total time spent providing and/or coordinating discharge services: DS: Data Data Completed and Pending Labs on day of discharge: Labs from last 24 hours 07/21/22 07/21/22 07/21/22 15:46 15:46 15:46 WBC RBC Hgb Hct MCV MCH MCHC RDW Plt Count MPV Immature Gran % (Auto) Neut % (Auto) Lymph % (Auto) [place] % (Auto) Eos % (Auto) Baso % (Auto) Lymph # (Auto) [place] # (Auto) Eos # (Auto) Baso # (Auto) Abs Immat Gran (auto) Absolute Neuts (auto) Absolute Nucleated RBC Nucleated RBC % RPR Pending HIV 1&2 Ab/P24 Ag 4thGn Negative Blood Type A Positive Antibody Screen Negative 07/21/22 15:46 WBC 24.1 H RBC 3.88 L Hgb 12.7 Hct 36.5 L MCV 94.1 MCH 32.7 MCHC 34.8 RDW 13.2 Plt Count 285 MPV 9.5 Immature Gran % (Auto) 0.7 H Neut % (Auto) 79.7 H Lymph % (Auto) 13.9 L [place] % (Auto) 5.3 Eos % (Auto) 0.2 Baso % (Auto) 0.2 Lymph # (Auto) 3.35 H [place] # (Auto) 1.3 H Eos # (Auto) 0.0 Baso # (Auto) 0.1 Abs Immat Gran (auto) 0.18 H Absolute Neuts (auto) 19.2 H Absolute Nucleated RBC 0.0 Nucleated RBC % 0.0 RPR HIV 1&2 Ab/P24 Ag 4thGn Blood Type Antibody Screen Discharge Plan Discharge Attending physician on discharge: Jeniffer Sierra Discharging Clinician: Jeniffer Sierra Anticipated Discharge Date/Time: 07/25/22 02:41 Patient Disposition: Home, Self-Care Activity: may shower, may drive after 2 weeks and pelvic rest Diet: regular Wound Care Instructions: incision open to air Stand Alone Forms: General Discharge Information Follow-up/Referrals: Jneiffer Sierra MD [Physician] - 1 Week ( and 6 week) Discharge Medications: New hydrocodone-acetaminophen 5-325 mg tablet 1 tablet PO Q4H PRN (Reason: pain) Qty: 20 0RF Continued Se-George-19 29 mg iron- 1 mg tablet See Rx Instructions .ROUTE .COMPLEX Rx Instructions: Take 1 tablet po once daily; Discontinued valacyclovir [Valtrex] 500 mg tablet 1,000 mg PO DAILY Date of admission: 07/21/22 11:08 Primary Care Provider: Gus Plasencia Admitting Provider: Jeniffer Sierra Attending physician on admission: Jeniffer Sierra Condition: Stable
[2022-07-22] MEDS: KETOROLAC 30 MG/ML VIAL (*BKC) IV PUSH ×3 (07:05→19:24)
[2022-07-22 07:41] LABS: Hematocrit 29.4 % (37.0-47.0); Hemoglobin 10.1 g/dL (12.0-15.0); Mean Corpuscular HGB Conc 34.4 g/dl (32-36); Mean Corpuscular Hemoglobin 32.8 pg (26-34); Mean Corpuscular Volume 95.5 fl (80-100); Mean Platelet Volume 9.5 fl (7.4-10.4); Platelet Count Result 220 k/mm3 (150-375); Red Blood Count 3.08 M/mm3 (4.2-5.4); White Blood Count 25.4 K/mm3 (4.5-10.0)
--- NOTE | 2022-07-22 15:00 | OBPPTRN ---
Patient transferred to post room # 284 via bed accompanied by support person and in open crib. Support person present. Oriented to unit, room, information board, rooming in, admission packet and security measures. Patient verbalizes understanding. PT introductions made and plan of care discussed per post op c section, pain management, breast feeding, daily care activities. PT demonstrates no barriers to learning. PT received such instructions per one to one discussion , mom baby care guide and demonstrations. PT verbalized understanding of such care.
[2022-07-22 15:31] LABS: Rapid Plasma Reagin Non-Reactive (NonReactive)
[2022-07-22] MEDS: DOCUSATE SODIUM 100 MG CAPSULE PO (16:39)
[2022-07-22] MEDS: SIMETHICONE 80 MG TAB.CHEW PO ×2 (16:39→19:24)
[2022-07-22] MEDS: POLYSACCHARIDE IRON COMPLEX 150 MG CAPSULE PO (16:39)
[2022-07-22] MEDS: HYDROcodone/acetaminophen (*CRX) 10-325 MG TABLET 1 TAB PO ×2 (16:39→23:00)
[2022-07-22] MEDS: LANOLIN (LANSINOH) 7.5 GM CREAM 1 APPLIC TOPICAL (16:40)
--- NOTE | 2022-07-22 17:20 | PC.NURSE ---
1030 - Pt is sleeping [id number] Introductions were made, then consulted with patient to assess needs related to . Mother led the conversation with her plan to breast/bottle feed and her experience feeding her so far. Mother works well with her infant with encouragement and education but requires reinforcement. Encouraged understanding of the benefits of skin to skin (unwrapping infant and placing vertically on her chest), responsive feeding and how to watch for early feeding signs, frequency of feeding on demand about every 8-12 times in 24 hours (every 2-3 hours), milk production, duration of feeding, signs of adequate intake/output and how to record on the feeding sheet. Reviewed positioning and ear, shoulder, hip alignment, supporting the breast, asymmetrical latch (off-center), and leading with the chin with a big open side gape. latched optimally to the right breast. Education given to mother of how to visualize suck/swallow ratios and listen for drinking at the breast. was able to maintain latch without discomfort to mother. Nipple care reviewed with optimal latch and good positioning. After 12 minutes infant self detached. optimally latched to the left breast and effectively breastfed. demonstrated feeding cues so mother was willing to practice a new position on the right breast and was latched optimally and effectively breastfed. Reviewed good handwashing when or touching the breast/nipples to prevent infection. Resources used to facilitate learning were used with the visual handouts and tool. Mother voiced understanding of responsive feedings, stimulating with skin to skin, massage touch, talking to to encourage if it has been 2 -3 hours since the start of the last , to call if does not latch or there is discomfort with . Reported to the primary RN. [id number] Consulted with mother and assisted mother latching infant to the right breast using football positioning. Mother denies any pain. Mother has made a decision to breast and bottle feed her . Encouraged mother to pump her breast for milk production and a good supply when infant is bottle fed. Mother voiced understanding of the information. Reported to primary RN.
[2022-07-23 00:40] VITALS: BP 103/56; PULSE 84; RESP 18; TEMP 36.8; O2SAT 100
[2022-07-23] MEDS: KETOROLAC 30 MG/ML VIAL (*BKC) IV PUSH (04:44)
[2022-07-23] MEDS: HYDROcodone/acetaminophen (*CRX) 5-325 MG TABLET 1 TAB PO ×2 (04:45→13:14)
[2022-07-23 05:43] LABS: Basophils Percent Auto 0.2 % (0.2-1.2); Eosinophils Percent Auto 0.1 % (0-4.4); Hematocrit 26.8 % (37.0-47.0); Hemoglobin 9.1 g/dL (12.0-15.0); Immature Granulocyte Absolute 0.24 K/mm3 (0.00-0.031); Immature Granulocyte Percent A 1.1 % (0-0.5); Lymphocytes Absolute Auto 2.81 K/mm3 (0.9-3.2); Lymphocytes Percent Auto 13.1 % (18.3-44.2); Mean Corpuscular Volume 94.4 fl (80-100); Mean Platelet Volume 9.9 fl (7.4-10.4); Monocytes Absolute Auto 1.5 K/mm3 (0.1-0.6); Monocytes Percent Auto 6.8 % (2.6-8.5); Neutrophils Absolute Auto 16.9 K/mm3 (1.3-6.7); Neutrophils Percent Auto 78.7 % (45.5-73.1); Platelet Count Result 219 k/mm3 (150-375); Red Blood Count 2.84 M/mm3 (4.2-5.4); Red Cell Distribution Width 13.1 % (11.5-14.5); White Blood Count 21.5 K/mm3 (4.5-10.0)
--- NOTE | 2022-07-23 07:33 | PM.OBPNVD ---
OB - PN: Subj Subjective Date/time seen: 07/23/22 07:33 Patient comments: no complaints and pain well controlled baby status: doing well OB - PN: Obj Data Labs CBC & Chem 7: 07/23/22 04:50 Labs: Laboratory Results - last 24 hr 07/21/22 07/22/22 07/23/22 15:46 07:31 04:50 WBC 25.4 H 21.5 H RBC 3.08 L 2.84 L Hgb 10.1 L 9.1 L Hct 29.4 L 26.8 L MCV 95.5 94.4 MCH 32.8 32.0 MCHC 34.4 34.0 RDW 13.0 13.1 Plt Count 220 219 MPV 9.5 9.9 Immature Gran % (Auto) 1.1 H Neut % (Auto) 78.7 H Lymph % (Auto) 13.1 L [place] % (Auto) 6.8 Eos % (Auto) 0.1 Baso % (Auto) 0.2 Lymph # (Auto) 2.81 [place] # (Auto) 1.5 H Eos # (Auto) 0.0 Baso # (Auto) 0.0 Abs Immat Gran (auto) 0.24 H Absolute Neuts (auto) 16.9 H Absolute Nucleated RBC 0.0 Nucleated RBC % 0.0 RPR Non-reactive OB - PN A/P Plan day: 1 Plan: routine care Time Spent With Patient Time: Total time spent is greater than 50% in coordination of care (as documented) at patient's floor/unit and/or counseling patient: Exam Narrative: inc c/d/i : Bimanual exam- vagina & uterus: other (Uterus firm, nt @U)
--- NOTE | 2022-07-23 07:41 | WPDANLDPN2 ---
Anes-Prog Note L&D Date/Time: 07/23/22 07:41 Neuro status: Neuro function grossly intact. Vital Signs: Last Vital Signs Temp 36.8 C 07/23/22 00:40 Pulse 84 07/23/22 00:40 Resp 18 07/23/22 00:40 BP 103/56 L 07/23/22 00:40 Pulse Ox 100 07/23/22 00:40 O2 Del Method Room Air 07/23/22 00:40 Pain score (VAS): 3 I/O: Intake & Output 07/22/22 07/22/22 07/23/22 15:59 23:59 07:59 Intake Total 800 Output Total 1900 200 Balance -1100 -200 Patient feedback: Patient satisfied with anesthetic care.
--- NOTE | 2022-07-23 07:42 | WPDANLDNPN2 ---
Anes-Prog Note L&D-Neuraxial Date/Time: 07/23/22 07:42 Patient feedback: Patient satisfied with post-operative pain management.
[2022-07-23 08:30] VITALS: BP 104/59; PULSE 81; RESP 18; TEMP 36.6; O2SAT 100
--- NOTE | 2022-07-23 08:30 | PC.NURSE ---
PT introductions made and plan of care discussed per post ,post op c section, pain management, breast feeding daily care activities. PT and support person both recipients of such instructions and no barriers to learning identified at this time. PT received such instructions this shift per one to one discussion , mom baby care guide and demonstrations. PT verbalized understanding of such care.
[2022-07-23 09:08] VITALS: BP 104/59; PULSE 81; RESP 18; TEMP 36.6; O2SAT 100
[2022-07-23] MEDS: POLYSACCHARIDE IRON COMPLEX 150 MG CAPSULE PO ×2 (09:08→17:25)
[2022-07-23] MEDS: SIMETHICONE 80 MG TAB.CHEW PO (09:08)
[2022-07-23] MEDS: MULTIVIT/MIN/PREN/FOL AC/IRON TABLET 1 TAB PO (09:08)
[2022-07-23] MEDS: DOCUSATE SODIUM 100 MG CAPSULE PO ×2 (09:08→17:25)
[2022-07-23] MEDS: IBUPROFEN 600 MG TABLET PO ×3 (09:09→23:23)
[2022-07-23] MEDS: HYDROcodone/acetaminophen (*CRX) 10-325 MG TABLET 1 TAB PO ×3 (09:10→23:23)
--- NOTE | 2022-07-23 13:40 | PC.NURSE ---
Reported to RN that mother bottle fed all night and there is a complicated history with mother, father of baby, support and mother stated to RN yesterday that she desires to breast and bottle feed.
--- NOTE | 2022-07-23 16:09 | PC.NURSE ---
[id number] Assisted family with their personal pump, measured for correct flange fit. Step mother is going to order a smaller flange. Infant has not eaten since noon. Mother is cuddling . Infant's diaper was changed and stimulated to wake and breastfeed. Infant was latched to the right breast using cross cradle positioning. Mother denies pain.
[2022-07-23 19:55] VITALS: BP 107/68; PULSE 80; RESP 16; TEMP 36.1
[2022-07-24] MEDS: HYDROcodone/acetaminophen (*CRX) 10-325 MG TABLET 1 TAB PO (03:50)
--- NOTE | 2022-07-24 06:34 | PM.OBPNVD ---
OB - PN: Subj Subjective Date/time seen: 07/24/22 06:34 Patient comments: no complaints and pain well controlled baby status: doing well OB - PN: Obj Data Labs CBC & Chem 7: 07/23/22 04:50 OB - PN A/P Plan day: 2 Plan: routine care, discharge home and follow up 6 weeks Time Spent With Patient Time: Total time spent is greater than 50% in coordination of care (as documented) at patient's floor/unit and/or counseling patient: Exam Narrative: inc c/d/i : Bimanual exam- vagina & uterus: other (Uterus firm, nt @U)
[2022-07-24] MEDS: POLYSACCHARIDE IRON COMPLEX 150 MG CAPSULE PO (09:01)
[2022-07-24] MEDS: IBUPROFEN 600 MG TABLET PO (09:02)
[2022-07-24] MEDS: DOCUSATE SODIUM 100 MG CAPSULE PO (09:02)
[2022-07-24] MEDS: MULTIVIT/MIN/PREN/FOL AC/IRON TABLET 1 TAB PO (09:02)
[2022-07-24] MEDS: HYDROcodone/acetaminophen (*CRX) 5-325 MG TABLET 1 TAB PO (09:03)
[2022-07-24] MEDS: MEASLES,MUMPS,RUBELLA VACCINE 0.5 ML VIAL SUB-Q (09:05)
[2022-07-24 09:10] VITALS: BP 108/62; PULSE 67; RESP 18; TEMP 36.4; O2SAT 99
--- NOTE | 2022-07-24 09:35 | PC.NURSE ---
Patient instructed on viewing the discharge video Mother & Baby Care, The First Two Weeks . Patient was given the opportunity and encouraged to ask questions. Patient verbalized understanding of information shared and has been given the mother/baby guide for home reference.
--- NOTE | 2022-07-24 12:29 | PC.NURSE ---
RN received report that mother had decided to breastfeed only for now. Mother is set up with a pump from yesterday and step-mother Daxa plans to bottle feed when patient goes back to work.
[2022-07-27 10:06] VITALS: BP 118/80; PULSE 78; RESP 16; TEMP 36.8
== END 2022-07-24 11:55 | disposition home or self-care (01) | DRG 540 ==
LOC: ANHLDR 07-22 02:42 → ANHOBPP 07-22 07:08 → ANHOB2 07-22 15:03
PROVIDERS: Advanced Practice Midwife; Admitting Provider Obstetrics & Gynecology Gynecology; PCP Emergency Medicine; Visit Provider Obstetrics & Gynecology Gynecology
PROC: 10D00Z1 Extraction of Products of Conception, Low, Open Approach (ICD-10-PCS; CPT 59514; principal; 2022-07-22 02:00)
DX: O76 Abnormality in fetal heart rate and rhythm complicating labor and delivery (principal); O98.52 Other viral diseases complicating childbirth; O99.334 Smoking (tobacco) complicating childbirth; F17.210 Nicotine dependence, cigarettes, uncomplicated; B00.9 Herpesviral infection, unspecified; Z3A.39 39 weeks gestation of pregnancy; Z37.0 Single live birth
CPT/HCPCS: 36415; 76815; 76819; 84112; 85025; 85027; 86592; 86703; 86850; 86900; 86901; 88307; 90710; A9270; G0432; J1885; J2274; J2370; J2405; J2590; J2795; J7030; J7120

== ENCOUNTER 2023-01-06 14:15 | Outpatient (CLI) | payer OTHER, SELFPAY ==
--- NOTE | ~2023-01-06 | US_ITS ---
EXAMINATION: US OB <= 14 weeks fetus DATE: 01/06/2023 14:54 INDICATION: Uncertain dates. TECHNIQUE: Real-time transabdominal pelvic ultrasound was performed. COMPARISON: None. FINDINGS: The uterus measures 11.9 x 7.5 x 9.7 cm. There is an intrauterine gestational sac. A yolk sac is iden tified. The crown rump length measures 3.0 cm, which correlates with an estimated gestational age of 9 weeks and 6 day(s) (+/-) 6 day(s). heart motion is identified measuring 165 beats per minute (bpm) by M-mode Doppler. The right ovary measures 4.2 x 2.6 x 2.4 cm. The left ovary measures 2.6 x 2.0 x 1.4 cm. There is normal vascular flow in the ovaries. There is no free fluid in the pelvi s. IMPRESSION: 1. Single living intrauterine gestation with estimated date of delivery of 08/05/2023. Reviewed, dictated and finalized at location A. IMPRESSION: 1. Single living intrauterine gestation with estimated date of delivery of .
== END 2023-01-06 14:16 | disposition home or self-care (01) ==
PROVIDERS: PCP Emergency Medicine; Visit Provider Obstetrics & Gynecology Gynecology
DX: Z36.87 Encounter for antenatal screening for uncertain dates (principal)
CPT/HCPCS: 76801

== ENCOUNTER 2023-03-08 10:41 | Outpatient (CLI) | payer OTHER, SELFPAY ==
--- NOTE | ~2023-03-08 | US_ITS ---
EXAMINATION: 1. US OB /maternal detail 2. US OB transvaginal DATE: 03/08/2023 12:33 INDICATION: anatomic survey. TECHNIQUE: Real-time transabdominal and transvaginal ultrasound of the pelvis was performed. COMPARISON: Ultrasound 01/06/2023 FINDINGS: There is a single living fetus in vertex presentation. The placenta is left posterior. heart r ate is 159 beats per minute (bpm). The amniotic fluid volume is subjectively normal. The deepest vert ical pocket is 4.0 cm. The cervical length is 5.4 cm on transvaginal images, which is normal. The following biometric data were obtained: Biparietal diameter (BPD): 4.2 cm; head circumference (HC): 15.3 cm; abdominal circumference (AC): 13 .0 cm; femur length (FL): 2.9 cm. These measurements are concordant. Estimated weight is 249 g +/- 37 g, which correlates with the 48th percentile when 08/05/23 is used as estimated date of delivery. As single measurements, these parameters are each equal to the following estimated gestational ages: BPD: 18 weeks 4 days. HC: 18 weeks 2 days. AC: 18 weeks 4 days. FL: 18 weeks 5 days. estimated gestational age based solely on measurements from this exam is 18 weeks 4 days +/- 1 weeks 2 days. The cerebral ventricles, cerebellum, cisterna magna, nuchal fold, and visualized portions of the spin e are normal. The lip is not well seen. The hands are partially seen. The heart is normal. The diaphr agm, stomach, kidneys, and bladder are normal. There are two umbilical arteries to yield a 3-vessel c ord. The cord insertion is normal. IMPRESSION: 1. Single living fetus in vertex presentation. 2. Estimated weight is 249 g +/- 37 g, which correlates with the 48th percentile when 08/05/23 is used as estimated date of delivery. This date was set by ultrasound on 01/06/2023. 3. Normal visualized portions of the anatomic survey. Reviewed, dictated and finalized at location A. IMPRESSION: 1. Single living fetus in vertex presentation. 2. Estimated weight is 249 g +/- 37 g, which correlates with the 48th pe rcentile when 08/05/23 is used as estimated date of delivery. This date was set by ultrasound on 01/06/2023. 3. Normal visualized portions of the anatomic survey.
== END 2023-03-08 10:42 | disposition home or self-care (01) ==
PROVIDERS: PCP Emergency Medicine; Visit Provider Advanced Practice Midwife
DX: Z36.9 Encounter for antenatal screening, unspecified (principal); Z3A.18 18 weeks gestation of pregnancy
CPT/HCPCS: 76805; 76817

== ENCOUNTER 2023-04-28 10:45 | Emergency (ER) | payer OTHER, SELFPAY ==
--- NOTE | ~2023-04-28 | US_ITS ---
EXAMINATION: US soft tissue pelvic DATE: 04/28/2023 12:28 INDICATION: Right inguinal lump. Induration and cellulitis. TECHNIQUE: Multiple transabdominal sonographic images of the pelvis were obtained. COMPARISON: None. FINDINGS: In the right inguinal region, there is a 2.6 x 0.8 x 1.3 cm subcutaneous heterogeneous hypoechoic mas s with surrounding wall. IMPRESSION: 1. 2.6 x 0.8 x 1.3 cm subcutaneous mass in right inguinal region, which may be a hematoma or abscess. Reviewed, dictated and finalized at location A.
[2023-04-28 11:05] VITALS: BP 108/64; PULSE 109; RESP 18; TEMP 36.1; O2SAT 97
--- NOTE | 2023-04-28 12:39 | ED.SKABFB ---
HPI - Skin/Abscess/Foreign Bdy General Chief complaint: Skin/Abscess/Foreign Body Stated complaint: inguinal abscess Time Seen by Provider: 04/28/23 11:12 Source: patient Mode of arrival: ambulatory Limitations: no limitations History of Present Illness HPI narrative: Patient is a 27 y/o female who presents to the ED with c/o an abscess to her right inguinal region. Patient reports she has had similar abscesses in the past that have required drainage. She states it has been several years since this has occurred. She noticed her right inguinal region to be irritated on Wednesday and states it has continued to worsen since then. There is an area of erythema and induration which she reports has grown in size over the last couple of days. Patient reports localized pain. Denies fevers or spontaneous drainage. Patient is currently approximately 5 months . She is denying any abdominal pain or vaginal bleeding. TRANSPLANT IMMUNOLOGIST is Dr. Sierra. Related Data Home Medications Medication Instructions Recorded Confirmed vitamins no.119-iron See Rx Instructions .Route .COMPLEX 03/11/22 07/21/22 fumarate 29 mg-folic acid 1 mg tablet (Se-George-19) Allergies Allergy/AdvReac Type Severity Reaction Status Date / Time cashew nut Allergy Unknown Verified 03/05/23 11:40 Review of Systems Review of Systems: CONSTITUTIONAL: Denies fever, chills, or sweats. CARDIOVASCULAR: Denies chest pain. RESPIRATORY: Denies dyspnea. GASTROINTESTINAL: Denies abdominal pain, nausea, vomiting, or diarrhea. GENITOURINARY: See HPI. SKIN: See HPI. MUSCULOSKELETAL: Denies back pain, joint pain, or myalgia. NEUROLOGIC: Denies headache, numbness, or weakness. All systems reviewed & are unremarkable except as noted in HPI and below PMFSH Past Medical History Medical History Anxiety and depression OCD and PTSD History of drug use last used meth in 2020 drug screen in this has been positive only for marijuana and nicotine History of herpes simplex infection Overweight (BMI 25.0-29.9) Family History Family History Father Hypertension Mother No problems noted. Grandparent Kidney malignancy Social History Social History (Reviewed 04/28/23 @ 12:42 by NAYANA Lopez Social History: Patient drinks a few sodas daily Smoking packs per day: 1 Smoking cigarettes per day: 20.0 Years smoked: 11 Smoking pack-years: 11.00 Smoking status: Current every day smoker Tobacco type: cigarettes Second hand tobacco smoke exposure: Yes Alcohol intake: never Substance use: never Substance use type: does not use Lack of Transportation: No Lack of Food: Never True Current Housing: I Have Housing Concerned About Future Housing: No Difficulty Paying Gas/Electric Bills: No Difficulty Paying for Meds: No Currently Unemployed: No Education: High School Diploma/GED Difficulty w/ Childcare or Family Care: No Additional occupation/education comments: 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 Gender identity (if verbalized by the patient): Female Spiritual care concerns: No Exam Narrative: GENERAL: Well appearing, well-nourished, non-toxic, in no acute distress. HEAD: Normocephalic, atraumatic. NECK: Supple. No adenopathy, no masses. RESPIRATORY: Airway patent, respirations nonlabored. Clear to auscultation bilaterally, no rales, rhonchi, wheezing. CARDIOVASCULAR: Regular rate and rhythm without murmurs, rubs, or gallops. Radial pulses 2+ and equal bilaterally. ABDOMINAL: Soft, uterus gravid, nontender, nondistended, no hepatosplenomegaly. Normoactive BS. MUSCULOSKELETAL: Moves all extremities. Strength/ROM intact without gross deformities. SKIN: Warm, dry, normal color. No rashes. Approx 3 X 1cm area of erythema, induration, TTP to R inguinal fold, just to R of vulvar
[2023-04-28] MEDS: CLINDAMYCIN HCL 150 MG CAP 450 MG PO (14:39)
== END 2023-04-28 14:49 | disposition home or self-care (01) ==
PROVIDERS: Emergency Provider Physician Assistant; PCP Emergency Medicine
DX: O99.712 Diseases of the skin and subcutaneous tissue complicating pregnancy, second trimester (principal); L02.214 Cutaneous abscess of groin; O99.282 Endocrine, nutritional and metabolic diseases complicating pregnancy, second trimester; E66.3 Overweight; O99.332 Smoking (tobacco) complicating pregnancy, second trimester; F17.210 Nicotine dependence, cigarettes, uncomplicated; Z3A.00 Weeks of gestation of pregnancy not specified
CPT/HCPCS: 10060; 76857; 87070; 87077; 87205; 99283; 99284; A9270

== ENCOUNTER 2023-06-04 13:35 | Outpatient (CLI) | payer OTHER, SELFPAY ==
--- NOTE | ~2023-06-04 | US_ITS ---
EXAMINATION: US OB follow up DATE: 06/04/2023 14:55 INDICATION: Estimated size less than expected for estimated gestational age TECHNIQUE: Real-time ultrasound of the pelvis was performed. The interpreting radiologist was not pre sent for the study. COMPARISON: None. FINDINGS: There is a single living fetus in vertex presentation. The placenta is on the maternal left. h eart rate is 148 beats per minute (bpm). The amniotic fluid index is 10.8 cm, which is normal (5th%- 95%: 8.8-23.8 cm at 31 weeks estimated gestational age). The nose and lips, stomach, bilateral kidney s and bilateral hands and are normal. The following biometric data were obtained: BPD: 7.9 cm -> 31 weeks 5 days Head circumference: 28.6 cm -> 31 weeks 3 days Abdominal circumference: 26.1 cm -> 30 weeks 2 days Femur length: 5.9 cm -> 30 weeks 5 days These measurements are concordant. Head circumference to abdominal circumference ratio: 1.10 (normal range 0.96-1.17). Estimated weight: 1613 g (+/-) 242 g or 3 lbs. 9 oz. (+/-) 9 oz. IMPRESSION: 1. Single living fetus in vertex presentation with heart rate of 148 bpm. 2. Normal amniotic fluid volume of 10.8 cm. 3. Estimated weight is 23rd percentile by Hadlock criteria when 08/05/2023 is used as the estim ated date of delivery (LUCRECIA). Please correlate with clinical information or earlier ultrasounds for mo st accurate LUCRECIA. 4. The previously incompletely visualized portions of the anatomic survey including the nose an d lips, stomach, bilateral kidneys and bilateral hands are normal. Reviewed, dictated and finalized at location A. IMPRESSION: 1. Single living fetus in vertex presentation with heart rate of 148 bpm. 2. Normal amniotic fluid volume of 10.8 cm. 3. Estimated weight is 23rd percentile by Hadlock criteria when 3 is used as the estimated date of delivery (LUCRECIA). Please correlate with clinic al information or earlier ultrasounds for most accurate LUCRECIA. 4. The previously incompletely visualized portions of the anatomic survey including the nose and lips, stomach, bilateral kidneys and bilateral hands ar e normal.
== END 2023-06-04 13:36 | disposition home or self-care (01) ==
LOC: ANHIMG 13:39
PROVIDERS: PCP Emergency Medicine; Visit Provider Advanced Practice Midwife
DX: O36.5930 Maternal care for other known or suspected poor fetal growth, third trimester, not applicable or unspecified (principal); Z3A.00 Weeks of gestation of pregnancy not specified
CPT/HCPCS: 76816

== ENCOUNTER 2023-07-09 14:43 | Observation (INO) | payer OTHER, SELFPAY ==
--- NOTE | 2023-07-09 14:43 | LDADM ---
This patient, Teresa Toribio, was admitted to Labor/Delivery/Recovery 120 on 07/09/23 at 14:43. Plans for labor, pain management and were discussed with patient. Patient/family oriented to hospital policies and general routines including ID bracelet, bed and alarms, visiting hours, pain management, procedures, bathroom and other care routines, personal items, smoking policy, room service/diet and guest tray routines, security routines, and visiting hours. Patient/Family are encouraged to report perceived risks to care and to ask questions if they do not understand what they are told or what they should do. See OBIX for further documentation.
--- NOTE | 2023-07-09 14:58 | PC.NURSE ---
Pt reports feeling contractions irregularly. Pt mother states that the she had an appt with Letitia LOZA today but it got cancelled and rescheduled for next Wednesday. They were directed to come to the [facility] to be evaluated for contractions. Upon arrival pt had occasional contraction. In the room pt denies pain at this time. Pt was handed a marker and instructed to press the button if she felt a contraction.
--- NOTE | 2023-07-09 15:24 | PC.NURSE ---
pt has not pressed the button to antione contraction and no contraction noted on the monitor. Pt continuing to deny pain at this time.
--- NOTE | 2023-07-09 15:27 | PC.NURSE ---
tracing reviewed with Dr. Sierra per phone. MD aware of 2 variable noted. Overall tracing moderate variability with accelerations noted. Discharge order received.
[2023-07-09 16:04] VITALS: BP 98/60; PULSE 102
--- NOTE | 2023-07-13 08:42 | PM.OBTRLD ---
OB - Triage/Final Diagnosis Visit Information Reason for evaluation: threatened labor Comments/Additional reasons for admission: I have assessed the risk for this patient, Teresareji Toribio, and determined that she would benefit from observation care.
== END 2023-07-09 16:05 | disposition home or self-care (01) ==
PROVIDERS: Admitting Provider Obstetrics & Gynecology Gynecology; PCP Emergency Medicine; Visit Provider Obstetrics & Gynecology Gynecology
DX: O47.03 False labor before 37 completed weeks of gestation, third trimester (principal); Z3A.36 36 weeks gestation of pregnancy
CPT/HCPCS: 59025; G0378; G0379

== ENCOUNTER 2023-07-16 14:51 | Outpatient (CLI) | payer OTHER, SELFPAY ==
--- NOTE | ~2023-07-16 | US_ITS ---
EXAMINATION: US OB follow up DATE: 07/16/2023 15:58 INDICATION: Size less than dates during third trimester TECHNIQUE: Real-time ultrasound of the pelvis was performed. The interpreting radiologist was not pre sent for the study. COMPARISON: 06/04/2023 FINDINGS: There is a single living fetus in vertex presentation. The placenta is to the maternal left . cardiac activity and movement are noted. heart rate is 137 beats per minute (bpm) . The amniotic fluid index is 16.3 cm which is normal (normal range: 7.5 cm to 24.4 cm). The following biometric data were obtained: Biparietal diameter (BPD): 9.1 cm; head circumference (HC): 32.3 cm; abdominal circumference (AC): 31 .7 cm; femur length (FL): 6.8 cm. These measurements are concordant. Estimated weight is 2754 g +/- 413 g, which correlates with the 22nd percentile when 08/05/2023 is used as estimated date of delivery. As single measurements, these parameters are each equal to the following estimated gestational ages w ith ranges of +/- 2 standard deviations: BPD: 37 weeks 1 days +/- 3 weeks 1 days. HC: 36 weeks 4 days +/- 2 weeks 5 days. AC: 35 weeks 4 days +/- 3 weeks 0 days. FL: 35 weeks 0 days +/- 3 weeks 0 days. estimated gestational age based solely on measurements from this exam is 36 weeks 1 days +/- 2 weeks 4 days. IMPRESSION: 1. Single living fetus in vertex presentation. 2. Normal amniotic fluid index. 3. Estimated weight is 2754 g +/- 413 g, which correlates with the 22nd percentile when 023 is used as estimated date of delivery. Reviewed, dictated and finalized at location B. HROOM ATTENDANT IMPRESSION: 1. Single living fetus in vertex presentation. 2. Normal amniotic fluid index. 3. Estimated weight is 2754 g +/- 413 g, which correlates with the 22nd p ercentile when 08/05/2023 is used as estimated date of delivery.
== END 2023-07-16 14:52 | disposition home or self-care (01) ==
PROVIDERS: PCP Emergency Medicine; Visit Provider Advanced Practice Midwife
DX: O36.5930 Maternal care for other known or suspected poor fetal growth, third trimester, not applicable or unspecified (principal); Z3A.36 36 weeks gestation of pregnancy
CPT/HCPCS: 76816

== ENCOUNTER 2023-08-02 05:22 | Inpatient (IN) | payer OTHER, SELFPAY ==
[2023-08-02] VITALS (69 sets, daily range): BP systolic 75–120; BP diastolic 41–91; PULSE 49–98; RESP 12–18; TEMP 36.2–37.2; O2SAT 94–100; BMI 29.7
[2023-08-02 05:57] LABS: Hematocrit 36.9 % (37.0-47.0); Hemoglobin 12.4 g/dL (12.0-15.0); Mean Corpuscular HGB Conc 33.6 g/dl (32-36); Mean Corpuscular Hemoglobin 31.6 pg (26-34); Mean Corpuscular Volume 93.9 fl (80-100); Mean Platelet Volume 9.3 fl (7.4-10.4); Platelet Count Result 354 k/mm3 (150-375); Red Blood Count 3.93 M/mm3 (4.2-5.4); White Blood Count 16.6 K/mm3 (4.5-10.0)
[2023-08-02] MEDS: LACTATED RINGERS 1,000 ML 125 ML IV CONT (06:26)
--- NOTE | 2023-08-02 06:45 | LDADM ---
This patient, Teresa Toribio, was admitted to Labor/Delivery/Recovery 120 on 08/02/23 at 05:22. Plans for surgery/ and pain management were discussed with patient. Patient/family oriented to hospital policies and general routines including ID bracelet, bed and alarms, visiting hours, pain management, procedures, bathroom and other care routines, personal items, smoking policy, room service/diet and guest tray routines, infant security routines, and visiting hours. Patient/Family are encouraged to report perceived risks to care and to ask questions if they do not understand what they are told or what they should do. See OBIX for further documentation.
--- NOTE | 2023-08-02 06:47 | WPDANESEPPF ---
Anes - Initial Pre Proc Eval Procedure: Operation Date: 08/02/23 07:30 Proposed Procedures p Repeat Section - Jeniffer Sierra MD Date/Time: 08/02/23 06:47 Surgeon: Jeniffer Sierra MD Pre Op Diagnosis: C/S Patient Data Age: 28 Gender: F Height: 1.7 m Weight: 86 kg Last Vital Signs Pulse 88 08/02/23 06:45 BP 109/65 08/02/23 06:45 Allergies Allergy/AdvReac Type Severity Reaction Status Date / Time cashew nut Allergy Unknown Verified 03/05/23 11:40 Home Medications Medication Instructions Recorded Confirmed Type vitamins no.119-iron 1 tablet PO HS 03/11/22 08/02/23 History fumarate 29 mg-folic acid 1 mg tablet (Se-George-19) ergocalciferol (vitamin D2) 1,250 50,000 unit PO 2XW 07/06/23 08/02/23 History mcg (50,000 unit) capsule valacyclovir 500 mg tablet 500 mg PO DAILY 07/06/23 08/02/23 History cephalexin 500 mg capsule 500 mg PO Q12H 08/02/23 08/02/23 History Laboratory Tests 08/02/23 05:39 WBC 16.6 H K/mm3 (4.5-10.0) RBC 3.93 L M/mm3 (4.2-5.4) Hgb 12.4 D g/dL (12.0-15.0) Hct 36.9 L % (37.0-47.0) MCV 93.9 fl (80-100) MCH 31.6 pg (26-34) MCHC 33.6 g/dl (32-36) RDW 13.0 % (11.5-14.5) Plt Count 354 D k/mm3 (150-375) MPV 9.3 fl (7.4-10.4) RPR Pending Patient hx anesthesia problems: none Family hx anesthesia problems: none Results Review: All pre-operative results and documents have been reviewed as part of the pre-operative evaluation. [facility] Past Medical History Medical History Anxiety and depression OCD and PTSD History of drug use last used meth in 2021 drug screen in this has been positive only for marijuana and nicotine History of herpes simplex infection Overweight (BMI 25.0-29.9) Family History Family History Father Hypertension Mother No problems noted. Grandparent Kidney malignancy Social History Social History Social History: Patient drinks a few sodas daily Smoking packs per day: 1 Smoking cigarettes per day: 20.0 Years smoked: 11 Smoking pack-years: 11.00 Smoking status: Current every day smoker Tobacco type: cigarettes Second hand tobacco smoke exposure: Yes Alcohol intake: never Substance use: never Substance use type: does not use Lack of Transportation: No Lack of Food: Never True Current Housing: I Have Housing Concerned About Future Housing: No Difficulty Paying Gas/Electric Bills: No Difficulty Paying for Meds: No Currently Unemployed: No Education: High School Diploma/GED Difficulty w/ Childcare or Family Care: No Additional occupation/education comments: 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 [employer] Gender identity (if verbalized by the patient): Female Spiritual care concerns: No Anes - Eval Final PreProcedure Day of Procedure 08/02/23 06:47 Patient weight: overweight Heart: regular rate and rhythm Lungs: clear to auscultation and normal air movement Airway: Mallampati scale class II Neurological: alert and oriented Last oral intake: >/= 8 hours ASA classification: III Emergent: no Anesthetic plan: proceed Anesthesia type and monitoring: regional spinal and standard monitoring Results Review: All pre-operative results and documents have been reviewed as part of the pre-operative evaluation. Informed Consent: The patient's anesthetic plan and its attendant risks and benefits were discussed with the patient/family/POA. Questions were solicited and answers provided to the satisfaction of the patient/family/POA.
--- NOTE | 2023-08-02 07:15 | WPDHPUPDATE1 ---
History and Physical Update Update Date/Time: 08/02/23 07:15 History and Physical has been reviewed, including an updated exam of the patient. There are NO changes in the patient's condition. Risks, benefits, and alternatives have been discussed and questions answered. Patient agrees to proceed with procedure.
--- NOTE | 2023-08-02 07:15 | PM.IMHP ---
H&P: HPI History of Present Illness Date/Time: 08/02/23 07:15 Chief Complaint: Repeat section Narrative: the patient is a 28-year-old 2 para 1 being admitted at 39 weeks for repeat section. The has been complicated by marijuana and nicotine use. has been measuring at approximately the 20th percentile. labs A-positive, rubella immune, RPR negative, hepatitis-B surface antigen negative, HIV negative, group B strep negative. The patient is a [employer] but is okay with a blood transfusion. Review of Systems Review of Systems: not repeated day of surgery; patient states no changes in status PMF Past Medical History Medical History (Updated 04/29/23 @ 00:05 by Dianna Gusman) Anxiety and depression OCD and PTSD History of drug use last used meth in 2020 drug screen in this has been positive only for marijuana and nicotine History of herpes simplex infection Overweight (BMI 25.0-29.9) Surgical History Surgical History (Updated 08/02/23 @ 07:18 by Jeniffer Sierra MD) History of section, low transverse Family History Family History (Updated 08/02/23 @ 06:47 by Cordelia Joseph RN) Father Hypertension Mother Hypertension Grandparent Kidney malignancy Social History Social History Social History: Patient drinks a few sodas daily Smoking packs per day: 0.5 Smoking cigarettes per day: 10.0 Years smoked: 12 Smoking pack-years: 6.00 Smoking status: Current every day smoker Tobacco type: cigarettes Second hand tobacco smoke exposure: Yes Alcohol intake: never Substance use: never Substance use type: does not use Lack of Transportation: No Lack of Food: Never True Current Housing: I Have Housing Concerned About Future Housing: No Difficulty Paying Gas/Electric Bills: YES Difficulty Paying for Meds: No Currently Unemployed: No Education: Grade School Difficulty w/ Childcare or Family Care: No Additional occupation/education comments: 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. Gender identity (if verbalized by the patient): Female Spiritual care concerns: No Meds Home Medications and Allergies Home Medications Medication Instructions Recorded Confirmed Type vitamins no.119-iron 1 tablet PO HS 03/11/22 08/02/23 History fumarate 29 mg-folic acid 1 mg tablet (Se-George-19) ergocalciferol (vitamin D2) 1,250 50,000 unit PO 2XW 07/06/23 08/02/23 History mcg (50,000 unit) capsule valacyclovir 500 mg tablet 500 mg PO DAILY 07/06/23 08/02/23 History cephalexin 500 mg capsule 500 mg PO Q12H 08/02/23 08/02/23 History Allergies Allergy/AdvReac Type Severity Reaction Status Date / Time cashew nut Allergy Unknown Verified 03/05/23 11:40 Vital Signs Vital Signs - 24 hr 08/02/23 05:45 08/02/23 06:00 08/02/23 06:15 Pulse Rate 90 98 90 Blood Pressure 118/70 106/73 111/65 Oxygen Delivery 08/02/23 06:30 08/02/23 06:45 08/02/23 07:00 Pulse Rate 94 88 74 Blood Pressure 105/66 109/65 116/61 Oxygen Delivery 08/02/23 06:36 Pulse Rate Blood Pressure Oxygen Delivery Room Air Exam Const: General: healthy appearing and alert Orientation/consciousness: patient oriented x3 Resp: Effort & Inspection: normal respiratory effort GI: GI Palp: Yes Soft to palpation, No Tenderness to palpation present (GI) and Yes Other GI palpation findings present ( fundal height 34cm) : External Female Exam: normal external appearance Speculum Exam - Vagina: normal appearance of the vagina and normal vaginal discharge Speculum Exam - Cervix: normal appearance of the cervix Bimanual exam- vagina & uterus: consistency normal Bimanual Exam- Adnexa, other: normal adnexae and No adnexal tenderness Neuro: General: patient oriented x3 H&P: Results Labs Labs: Short CBC 08/02/23 Range/U
[2023-08-02] MEDS: ceFAZolin 2 GM/D5W 50 ML 2 GM/50 ML BAG IVPB (07:35)
--- NOTE | 2023-08-02 07:43 | PC.NURSE ---
FHT's 155 in OR
--- NOTE | 2023-08-02 08:35 | W.PM.OBCSD ---
OB - Delivery Note Procedure Delivery date: 08/02/23 Pre-op diagnosis: Previous Delivery and Other (Intrauterine at 39 weeks) Post-op Diagnosis: Same Procedure Performed: Repeat Secondary branch: low cervical, transverse Surgeon: Jeniffer Sierra MD Anesthesia type: Spinal Description of Procedure/Findings: The patient was taken to the operating room and placed under spinal anesthesia in the dorsal supine position with a leftward tilt. Once anesthesia was deemed adequate, she was prepped and draped in the usual sterile fashion. The old keloid scar was removed in elliptical fashion with the scalpel. The incision is then carried down to the fascia in the midline with the scalpel. The incision is extended laterally using Henao scissors. [facility] was used to tent the fascia which was then dissected using sharp dissection due to adhesions. The peritoneum was entered during this process. The peritoneal incision was extended with blunt traction. The bladder blade is placed and the bladder flap noted to be well below the level of the lower uterine segment. It was not dissected. The lower uterine segment was incised in a transverse fashion with the scalpel and extended laterally using blunt traction. Clear fluid is noted upon rupture of membranes. The infant's head was brought up into the incision and delivered while the accounts payable assistant applied fundal pressure. Nuchal cord is noted. The remainder of the infant was delivered and the cord detangled. After delayed cord clamping, the cord is clamped, cut, and the handed to the waiting nursery nurse. The placenta was removed initially with manual traction but due to the cord starting to avulse it is removed manually. The uterus was cleared of all clots and debris and exteriorized. The uterus, tubes, and ovaries appear grossly normal. The uterine incision was closed using 0 Monocryl in a running locked fashion. Same suture was used to imbricate. Good hemostasis is noted. The cul-de-sac is irrigated and the uterus returned to the abdomen. The gutters were irrigated and the uterine incision again inspected and noted to be hemostatic. The fascia was closed using 0 Vicryl in a running fashion. Subcutaneous tissue is irrigated and made hemostatic using Bovie cautery. Skin incision was closed using sofi due to the prior keloid with sutures. Specimen: No Drains: Yes (Perez catheter) Packing: No Pathology: None sent Complications: No immediate complications Condition: Stable Disposition: Floor Baby Date of : 08/02/23 Weeks of gestation at delivery: 39 gender: Male Weight (pounds): 6 Weight (ounces): 2 presentation: vertex Placenta delivery description: Manual Removal Cord Vessel Description: 3 Vessels score one minute: 9 score five minutes: 9
--- NOTE | 2023-08-02 08:40 | PM.OBDSVD ---
DS: Admitting Diagnosis Discharge Date 08/06/23 Admitting Diagnosis Intrauterine at 39 weeks Previous section DS: Discharge Diagnosis Discharge Diagnosis (1) Status post repeat low transverse section: Code(s): Z98.891 - History of uterine scar from previous surgery Status: Acute (2) Post-op pain: Code(s): G89.18 - Other acute postprocedural pain Status: Acute OB - DS: Summary OB Procedures : Ultrasound OB Procedures Intrapartum: low cervical, transverse OB Procedures: : None Peripartum Data Infant Delivery Method: Section Procedures: Procedures Operation Date: 08/02/23 07:30 <No data on this case meets the specified criteria> complications: none Status at Discharge Functional status at discharge: independent ambulation Overall status at discharge: patient is progressing back to baseline Time Spent with Patient Time attestation: Total time spent providing and/or coordinating discharge services: DS: Data Data Completed and Pending Labs on day of discharge: Labs from last 24 hours 08/02/23 05:39 WBC 16.6 H RBC 3.93 L Hgb 12.4 D Hct 36.9 L MCV 93.9 MCH 31.6 MCHC 33.6 RDW 13.0 Plt Count 354 D MPV 9.3 RPR Pending Blood Type A Positive Antibody Screen Negative Discharge Plan Discharge Attending physician on discharge: Jeniffer Sierra Discharging Clinician: Letitia Hanson Anticipated Discharge Date/Time: 08/06/23 08:41 Patient Disposition: Home, Self-Care Activity: may shower, may drive after 2 weeks and pelvic rest Diet: regular Wound Care Instructions: follow printed instructions and incision open to air Discharge Instructions: Continue taking your vitamin and any other supplements as previously directed (Examples: Iron, Vitamin D). You may take Tylenol 1000mg over the counter every 6 hours as needed for pain. Do not exceed 4000mg of Tylenol daily. You may continue using tucks pads and dermoplast spray if needed for a few more days. Depression Notify provider for signs or symptoms. These may include- Feelings: Feeling anxious, angry, hopeless, guilt, or loss of interest/pleasure in activities you normally enjoy. Mood swings or panic attacks. General: Extreme fatigue, loss of your appetite, feeling restless. Crying excessively, irritability, insomnia Psychological: Lack of concentration, depression or fear, unwanted thoughts Weight: Significant gain or loss Safety: Thoughts of harming yourself or your baby. Education: Mom and Baby Guide Given to: Mother Follow-Up: Call your delivering provider's office for an appointment to be seen in: 1 week for incision check, call the office for an appointment. Per Letitia Hanson patient does not require a follow up @ [facility] because she is going out of town to recover. Baby is returning tomorrow 08/07/23 only for a TCB to be done to check for jaundice. Addendum to follow up- Per mother she made an appointment for baby to see their a r collections rep, Dr. Verde, tomorrow morning at 0900 so they will not be bringing in baby for a TCB, Dr. Landaverde made aware. BREAST CARE: * Wear a snug supportive bra. * For engorgement discomfort: Breast Feeding: * Apply warm moist washcloths * Express milk as needed to relieve engorgement * Wear loose clothing Bottle Feeding: * May apply ice packs * For sore nipples: * Identify correct latch-on * Apply warm moist washcloths before and after nursing * Air dry nipples after nursing * May apply Lansinoh cream to nipples ABDOMINAL INCISION: * Allow incision to air dry * Do NOT use lotions for powders on your incision * When showering, allow soap and water to run over the incision, but do not wash incis
--- NOTE | 2023-08-02 08:41 | SUR.PHASEI ---
IV of 1000 LR with 40 units Pitocin infusing- 700 ml remains
[2023-08-02] MEDS: KETOROLAC 30 MG/ML VIAL (*BKC) 15 MG IV PUSH (10:17)
[2023-08-02] MEDS: diphenhydrAMINE HCl INJ 50 MG/ML VIAL 25 MG IV PUSH (10:30)
[2023-08-02] MEDS: MORPHINE SULFATE INJ (*CRX) 10 MG/ML AMP 2 MG IV PUSH (11:03)
[2023-08-02] MEDS: OXYTOCIN 30 UNITS/NS 500 ML 30 UNITS/500 ML BAG 125 UNITS IV CONT (11:28)
[2023-08-02] MEDS: KETOROLAC 30 MG/ML VIAL (*BKC) IV PUSH (12:36)
--- NOTE | 2023-08-02 12:48 | PC.NURSE ---
[id number] Introductions were made to the patient. Mother is concerned about the pin head blood blister on her left breast after the first session downstairs and how it relates to the HSV in her body. Encouraged understanding of the benefits of skin to skin (demonstrating unwrapping infant and placing upright on her chest), stimulating with massage touch, changing positions to encourage wakefulness, how to watch for early feeding cues, responsive feeding, feeding on demand (aiming for 8-12 times in 24 hours, about every 2-3 hours), milk production, building/maintaining a milk supply, duration of feeding, signs of adequate intake/output and how to record on the feeding sheet. Mother works well with her with encouragement and education. Reviewed positioning and ear, shoulder, hip alignment, supporting the breast to facilitate a deep latch, asymmetrical latch (off-center), leading with the chin with a big, open, wide gape and body close to mother. latched optimally to the right breast in cross cradle position. was able to maintain latch without pain to mother protecting the nipple with optimal positioning and latching. While effectively breastfeeds we discuss the options as mother has a blood blister rather than a herpes lesion, however, on the side of caution mother was given the option of hand expressing, manual expressing or electric pumping the left breast until the blood blister heals to avoid any possible chance of the being exposed to the virus if the blister should open up with a bad latch. Mother voiced understanding of information, demonstrated learning and will call if there is a request for assistance. Reported to the Primary RN.
[2023-08-02] MEDS: DEXTROSE 5%/0.45% SOD CHL 1,000 ML 125 ML IV CONT (14:00)
[2023-08-02 14:54] LABS: Rapid Plasma Reagin Non-Reactive (NonReactive)
[2023-08-02] MEDS: HYDROcodone/acetaminophen (*CRX) 5-325 MG TABLET 1 TAB PO (17:51)
[2023-08-02] MEDS: DOCUSATE SODIUM 100 MG CAPSULE PO (17:51)
[2023-08-02] MEDS: IBUPROFEN 600 MG TABLET PO (21:00)
[2023-08-02] MEDS: diphenhydrAMINE HCl CAP 25 MG CAPSULE PO (22:00)
[2023-08-03] MEDS: HYDROcodone/acetaminophen (*CRX) 5-325 MG TABLET 1 TAB PO ×2 (00:27→04:05)
[2023-08-03 04:00] VITALS: BP 101/58; PULSE 56; RESP 14; TEMP 37; O2SAT 100
[2023-08-03] MEDS: IBUPROFEN 600 MG TABLET PO ×2 (04:05→12:25)
[2023-08-03 05:32] LABS: Basophils Absolute Auto 0.1 K/mm3 (0.0-0.1); Basophils Percent Auto 0.4 % (0.2-1.2); Eosinophils Absolute Auto 0.1 K/mm3 (0-0.3); Eosinophils Percent Auto 0.6 % (0-4.4); Hematocrit 33.5 % (37.0-47.0); Hemoglobin 10.8 g/dL (12.0-15.0); Immature Granulocyte Percent A 0.6 % (0-0.5); Lymphocytes Absolute Auto 4.38 K/mm3 (0.9-3.2); Lymphocytes Percent Auto 26.8 % (18.3-44.2); Mean Corpuscular HGB Conc 32.2 g/dl (32-36); Mean Corpuscular Hemoglobin 31.5 pg (26-34); Mean Corpuscular Volume 97.7 fl (80-100); Mean Platelet Volume 9.9 fl (7.4-10.4); Monocytes Absolute Auto 1.3 K/mm3 (0.1-0.6); Monocytes Percent Auto 7.8 % (2.6-8.5); Neutrophils Absolute Auto 10.4 K/mm3 (1.3-6.7); Neutrophils Percent Auto 63.8 % (45.5-73.1); Platelet Count Result 310 k/mm3 (150-375); Red Blood Count 3.43 M/mm3 (4.2-5.4); Red Cell Distribution Width 13.2 % (11.5-14.5); White Blood Count 16.3 K/mm3 (4.5-10.0)
--- NOTE | 2023-08-03 07:33 | PM.OBPNVD ---
OB - PN: Subj Subjective Date/time seen: 08/03/23 07:33 Patient comments: no complaints baby status: doing well and nursing well OB - PN: Obj Data Labs 08/03/23 03:18 Labs: Laboratory Results - last 24 hr 08/02/23 08/03/23 05:39 03:18 WBC 16.3 H RBC 3.43 L Hgb 10.8 L Hct 33.5 L MCV 97.7 MCH 31.5 MCHC 32.2 RDW 13.2 Plt Count 310 MPV 9.9 Immature Gran % (Auto) 0.6 H Neut % (Auto) 63.8 Lymph % (Auto) 26.8 [place] % (Auto) 7.8 Eos % (Auto) 0.6 Baso % (Auto) 0.4 Lymph # (Auto) 4.38 H [place] # (Auto) 1.3 H Eos # (Auto) 0.1 Baso # (Auto) 0.1 Abs Immat Gran (auto) 0.10 H Absolute Neuts (auto) 10.4 H Absolute Nucleated RBC 0.0 Nucleated RBC % 0.0 RPR Non-reactive Blood Type A Positive Antibody Screen Negative OB - PN A/P Plan day: 1 Plan: routine care Time Spent With Patient Time: Total time spent is greater than 50% in coordination of care (as documented) at patient's floor/unit and/or counseling patient: Exam Narrative: inc c/d/i : Bimanual exam- vagina & uterus: other (Uterus firm, nt @U)
[2023-08-03] MEDS: MULTIVIT/MIN/PREN/FOL AC/IRON TABLET 1 TAB PO (08:37)
[2023-08-03] MEDS: DOCUSATE SODIUM 100 MG CAPSULE PO ×2 (08:37→20:20)
[2023-08-03] MEDS: HYDROcodone/acetaminophen (*CRX) 10-325 MG TABLET 1 TAB PO ×4 (08:40→20:20)
[2023-08-03 09:11] VITALS: BP 113/65; PULSE 58; RESP 18; TEMP 36.1; O2SAT 100
--- NOTE | 2023-08-03 09:16 | WPDANLDNPN2 ---
Anes-Prog Note L&D-Neuraxial Date/Time: 08/03/23 09:16 Neuraxial medications: intrathecal PF morphine Opiod-related complaints: pruritis moderate, treatment effective Patient feedback: Patient satisfied with post-operative pain management.
--- NOTE | 2023-08-03 09:16 | WPDANLDPN2 ---
Anes-Prog Note L&D Date/Time: 08/03/23 09:16 Comfortable throughout: section Neuraxial method: spinal Epidural/Spinal procedure site: clean & non-tender Neuro status: Neuro function grossly intact. Cardiovascular status: normal Respiratory status: normal Airway patency: baseline Mental status: baseline Post-Op hydration status: normal Vital Signs: Last Vital Signs Temp 36.1 C L 08/03/23 09:11 Pulse 58 L 08/03/23 09:11 Resp 18 08/03/23 09:11 BP 113/65 08/03/23 09:11 Pulse Ox 100 08/03/23 09:11 O2 Del Method Room Air 08/02/23 20:00 Pain score (VAS): 3/10 I/O: Intake & Output 08/02/23 08/03/23 08/03/23 23:59 07:59 15:59 Intake Total 740 Output Total 1350 1400 Balance -610 -1400 Post-procedural complaints: none Patient feedback: Patient satisfied with anesthetic care.
[2023-08-03] MEDS: SIMETHICONE 80 MG TAB.CHEW PO (12:25)
[2023-08-03] MEDS: LIDOCAINE 5% PATCH 1 PATCH TRANSDERM (15:50)
[2023-08-03 20:00] VITALS: BP 100/59; PULSE 73; RESP 16; TEMP 37.1; O2SAT 99
[2023-08-04] MEDS: HYDROcodone/acetaminophen (*CRX) 10-325 MG TABLET 1 TAB PO (00:50)
[2023-08-04] MEDS: IBUPROFEN 600 MG TABLET PO ×4 (00:50→22:43)
[2023-08-04] MEDS: SIMETHICONE 80 MG TAB.CHEW PO ×2 (00:50→08:14)
[2023-08-04] MEDS: DOCUSATE SODIUM 100 MG CAPSULE PO ×2 (08:14→22:46)
[2023-08-04] MEDS: MULTIVIT/MIN/PREN/FOL AC/IRON TABLET 1 TAB PO (08:14)
[2023-08-04] MEDS: HYDROcodone/acetaminophen (*CRX) 5-325 MG TABLET 1 TAB PO ×4 (08:17→22:43)
[2023-08-04 08:55] VITALS: BP 115/71; PULSE 77; RESP 20; TEMP 36.7; O2SAT 99
--- NOTE | 2023-08-04 09:10 | PM.OBPNVD ---
OB - PN: Subj Subjective Date/time seen: 08/04/23 09:10 Patient comments: no complaints and pain well controlled baby status: doing well OB - PN: Obj Data Labs 08/03/23 03:18 OB - PN A/P Plan day: 2 Plan: routine care Time Spent With Patient Time: Total time spent is greater than 50% in coordination of care (as documented) at patient's floor/unit and/or counseling patient: Exam Narrative: inc c/d/i : Bimanual exam- vagina & uterus: other (Uterus firm, nt @U)
--- NOTE | 2023-08-04 13:19 | PCCCNOTE ---
Addendum entered by ADITI Owens 08/16/23 07:58: [phone]. Addendum entered by ADITI Owens 08/04/23 14:37: DCFS reports Your information has been reviewed and assessed by a [employer] Operator. The information you provided met the criteria for a Child Welfare Referral to offer services/provide support to the involved family. RN Phylicia real. Original Note: Met with pt. due to care coordination consult for father of baby incarcerated. Pt. reports FOB was supposed to get out of [facility] in January 2024, but now he won't be released until July 2024. Pt's step mother Daxa at bedside and pt. reports she is supportive. Pt. typically lives in own home in [place], with her 12 month old baby girl. Pt. plans to stay in [place], [place] with her brothers for extra support for 1 month, starting August 06, 2023. Pt. reports has baby supplies for new baby, and already established with [employer]. Pt. was provided with resources and counseling resources. Pt. reports in connection with [employer] and [facility] in [place] for Riky gifts for her two children. Pt. states utilizes the [employer], and receives assistance through [employer]. Pt. reports her cousin Marsha is supportive and is currently caring for her 12 month old baby girl, while she is in the hospital. Pt. states her sister Marni is also helpful. Pt. denies prior DCFS involvement. Pt. self admits to using THC and Nicotine throughout her and states her last + UDS was in July 2023. Pt. denies any other drug use. Pt. reports history of meth use, and states last usage was 2020, prior to her two pregnancies. No UDS completed on pt. or baby during his hospital visit. [facility] online report made #[id number]. Pt. anticipates discharge tomorrow 08/05.
--- NOTE | 2023-08-04 15:46 | PC.NURSE ---
1405- Purposefully rounded to assess needs. Mother is sleeping and infant is at the desk. [id number] Purposefully rounded to assess needs. Mother is demonstrating to the right breast using the cradle position. After a while mother states it feels pinchy . Nipple was slightly misshaped. Assisted mother with a cross cradle latch with chin in the breast with a deeper latch. Reviewed benefits of upright [id number], burping before feedings, and after feeding to promote milk production. Mother voiced understanding of the information. Reported to the Primary RN.
[2023-08-04] MEDS: LIDOCAINE 5% PATCH 1 PATCH TRANSDERM (16:30)
[2023-08-04 19:00] VITALS: BP 120/87; PULSE 66; RESP 18; TEMP 36.4; O2SAT 100
--- NOTE | 2023-08-05 07:44 | PM.OBPNVD ---
OB - PN: Subj Subjective Date/time seen: 08/05/23 07:44 Patient comments: no complaints and pain well controlled baby status: doing well and other (high bili so likely no dc today) OB - PN: Obj Data Labs 08/03/23 03:18 OB - PN A/P Plan day: 3 Plan: routine care and other (declines bc) Time Spent With Patient Time: Total time spent is greater than 50% in coordination of care (as documented) at patient's floor/unit and/or counseling patient: Exam Narrative: inc c/d/i : Bimanual exam- vagina & uterus: other (Uterus firm, nt @U)
[2023-08-05 09:05] VITALS: BP 114/63; PULSE 66; RESP 16; TEMP 36.9; O2SAT 99
[2023-08-05] MEDS: HYDROcodone/acetaminophen (*CRX) 5-325 MG TABLET 1 TAB PO (10:50)
[2023-08-05] MEDS: MULTIVIT/MIN/PREN/FOL AC/IRON TABLET 1 TAB PO (10:50)
[2023-08-05] MEDS: DOCUSATE SODIUM 100 MG CAPSULE PO (17:07)
[2023-08-05 20:30] VITALS: BP 117/71; PULSE 66; RESP 16; TEMP 36.8; O2SAT 98
[2023-08-05] MEDS: LIDOCAINE 5% PATCH 1 PATCH TRANSDERM (20:35)
[2023-08-06] MEDS: DOCUSATE SODIUM 100 MG CAPSULE PO (07:45)
[2023-08-06] MEDS: MULTIVIT/MIN/PREN/FOL AC/IRON TABLET 1 TAB PO (07:45)
[2023-08-06] MEDS: IBUPROFEN 600 MG TABLET PO (07:45)
[2023-08-06] MEDS: HYDROcodone/acetaminophen (*CRX) 5-325 MG TABLET 1 TAB PO (07:46)
--- NOTE | 2023-08-06 08:12 | P.PNOB_ITS ---
OB - PN: Subj Subjective Date/time seen: 08/06/23 0740 Interval history: Doing well. Up to BR. ambulating without difficulty or dizziness. Pain well controlled with po medication. Denies PATTON, visual changes, RUQ pain. Pumping and getting breastmilk return. Patient comments: no complaints and pain well controlled baby status: nursing well (pumping) [place] feeding status: pumping and bottle feeding OB - PN: Obj Data Labs 08/03/23 03:18 OB - PN A/P Plan day: 2 Plan: discharge home Time Spent With Patient Time: Total time spent is greater than 50% in coordination of care (as documented) at patient's floor/unit and/or counseling patient: Review of Systems 2 Review of Systems: All systems reviewed & are unremarkable except as noted in HPI and below Exam Const: General: cooperative, no acute distress and awake Orienta tion/consciousness: patient oriented x3 Limitations: no limitations Resp: Effort & Inspection: normal respiratory effort and able to speak in complete sentences Auscultation: clear to auscultation bilaterally Cardio: Rate: regular rate Peripheral pulses: Peripheral pulses 2+ throughout GI: Inspection: normal to inspection Auscultation: normal bowel sounds : General: Yes bladder normal to palpation Speculum Exam - Vagina: vaginal bleeding Bimanual exam- vagina & uterus: bladder normal to palpation OB/external & speculum: vaginal bleeding Other: Fundus firm Skin: General skin exam: normal color Other: Incision approximated. Margaret intact. Neuro: General: patient oriented x3 Cognition (Neuro): normal cognition Speech: normal speech Extrem: General: normal to inspection Psych: Appearance: grossly normal Mental Status: mental status grossly normal Speech and movement: Normal speech and movement present Affect: normal affect Attitude: cooperative Thought process: Normal thought process present
[2023-08-06 08:30] VITALS: BP 125/70; PULSE 61; RESP 16; TEMP 36.9; O2SAT 100
--- NOTE | 2023-08-06 09:53 | PC.NURSE ---
Patient viewed the discharge video Mother & Baby Care, The First Two Weeks . Patient was given the opportunity and encouraged to ask questions. Patient verbalized understanding of information shared and has been given the mother/baby guide for home reference.
--- NOTE | 2023-08-06 12:25 | PC.NURSE ---
1140 Per mother she made an appointment for baby to see their sign erector, Dr. Verde, tomorrow morning at 0900 so they will not be bringing in baby for a TCB, Dr. Landaverde made aware @ 1220
--- NOTE | 2023-08-06 14:14 | PC.NURSE ---
1015 Introductions were made, then consulted with patient to assess needs related to . Discussed with mother her?plans to feed?her infant and the?experience so far. Resources provided for inpatient and outpatient services with the feeding sheet, mom/baby guide and name written on the communication board. Mother voiced understanding of information and will call if there is a request for assistance. Reported to the Primary RN.
== END 2023-08-06 11:40 | disposition home or self-care (01) | DRG 540 ==
LOC: ANHLDR 05:25 → ANHOB2 11:25
PROVIDERS: Admitting Provider Obstetrics & Gynecology Gynecology; PCP Emergency Medicine; Visit Provider Obstetrics & Gynecology Gynecology
PROC: 10D00Z1 Extraction of Products of Conception, Low, Open Approach (ICD-10-PCS; CPT 59514; principal; 2023-08-02 07:30)
DX: O34.211 Maternal care for low transverse scar from previous cesarean delivery (principal); Z37.0 Single live birth; Z3A.39 39 weeks gestation of pregnancy
CPT/HCPCS: 36415; 85025; 85027; 86592; 86850; 86900; 86901; A9270; J0690; J1200; J1885; J2270; J2274; J2371; J2405; J2590; J7120